=== PATIENT | male | born 1965 | race Caucasian/White ===

== ENCOUNTER 2020-02-09 09:24 | Inpatient (IN) | payer BC, OTHER ==
[~2020-02-09] VITALS: Ht 175.3 cm; Wt 100.4 kg
[~2020-02-09 09:24] MED LIST: FLUT9.9S NS; LORA10TA3 PO; MORPHINE SULFATE 4 MG/ML VIAL. IV PRN
[2020-02-09 09:55] LABS: BASO % 1 % (0-3); EOS % 0 % (0-3); HEMOGLOBIN 13.7 g/dL (13.0-17.5); LYMPH # 0.7 x10^3/uL (1.0-4.8); LYMPH % 9 % (24-48); MEAN CORPUSCULAR HEMOGLOBIN 31 pg (25-35); MEAN CORPUSCULAR HGB CONC 34 g/dL (31-37); MEAN CORPUSCULAR VOLUME 90 fL (79-100); MONO # 0.6 x10^3/uL (0.0-1.1); MONO % 8 % (0-9); NEUT # 6.7 x10^3/uL (1.8-7.7); NEUT % 83 % (31-73); PLATELET COUNT 265 x10^3/uL (140-400); RED BLOOD COUNT 4.43 x10^6/uL (4.30-5.70); RED CELL DISTRIBUTION WIDTH 12.9 % (11.5-14.5); WHITE BLOOD COUNT 8.1 x10^3/uL (4.0-11.0)
[2020-02-09 10:06] LABS: CALCIUM 8.7 mg/dL (8.5-10.1); CREATININE 1.1 mg/dL (0.7-1.3); GFR 69.2; POTASSIUM 3.9 mmol/L (3.5-5.1)
[2020-02-09 10:13] LABS: ALBUMIN/GLOBULIN RATIO 0.8 (1.0-1.7); C-REACTIVE PROTEIN 123.2 mg/L (0-3.3); TOTAL PROTEIN 6.7 g/dL (6.4-8.2)
--- NOTE | 2020-02-09 10:52 | RAD ---
EXAM: CHEST ONE VIEW. HISTORY: Cough, COVID-19. COMPARISON: None. FINDINGS: A frontal view of the chest is obtained. Bilateral patchy airspace infiltrates are consistent with atypical pneumonia. There is no pneumothorax or pleural effusion. The heart is not enlarged. IMPRESSION: 1. Mild multifocal infiltrates consistent with atypical pneumonia. Electronically signed by: Inocencio Padilla MD (02/09/2020 10:45 AM) [facility]
[2020-02-09] MEDS ORDERED: DEXAMETHASONE SOD PHOS 4 MG/ML VIAL IVP ONE (11:00)
[2020-02-09] MEDS ORDERED: ACETAMINOPHEN 500 MG TABLET PO ONE (11:00)
[2020-02-09] MEDS ORDERED: cefTRIAXone IV Push 1 GM VIAL. IVP ONE (11:00)
--- NOTE | 2020-02-09 12:04 | EKG ---
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
--- NOTE | 2020-02-09 12:13 | ED.ADGEN ---
Past Medical History Past Medical History: No Pertinent History Past Surgical History: Other Additional Past Surgical Histo: HERNIA REPAIR 93' Smoking Status: Never Smoker Additional Information: CHEWING TOBACCO Alcohol Use: Occasionally General Adult EDM: Chief Complaint: SHORTNESS OF BREATH HPI: HPI: Patient is a 54 year old [f__sex] who presents with [] Review of Systems: Review of Systems: Constitutional: Denies fever or chills. [] Eyes: Denies change in visual acuity. [] HENT: Denies nasal congestion or sore throat. [] Respiratory: Denies cough or shortness of breath. [] Cardiovascular: Denies chest pain or edema. [] GI: Denies abdominal pain, nausea, vomiting, bloody stools or diarrhea. [] : Denies dysuria. [] Musculoskeletal: Denies back pain or joint pain. [] Integument: Denies rash. [] Neurologic: Denies headache, focal weakness or sensory changes. [] Endocrine: Denies polyuria or polydipsia. [] Lymphatic: Denies swollen glands. [] Psychiatric: Denies depression or anxiety. [] Current Medications: Current Medications Medications (Trade) Dose Ordered Sig/Jonn Start Time Stop Time Status Last Admin Dose Admin Acetaminophen (Tylenol) 1,000 mg 1X ONCE 02/09/20 11:00 02/09/20 11:01 DC 02/09/20 11:15 1,000 MG Ceftriaxone Sodium (Rocephin) 1 gm 1X ONCE 02/09/20 11:00 02/09/20 11:01 DC 02/09/20 11:16 1 GM Dexamethasone Sodium Phosphate (Decadron) 10 mg 1X ONCE 02/09/20 11:00 02/09/20 11:01 DC 02/09/20 11:18 10 MG Allergies: Allergies: Allergies Coded Allergies Type Severity Reaction Last Updated Verified No Known Drug Allergies 06/02/14 No Physical Exam: PE: Constitutional: Well developed, well nourished, no acute distress, non-toxic appearance. [] HENT: Normocephalic, atraumatic, bilateral external ears normal, oropharynx moist, no oral exudates, nose normal. [] Eyes: PERRLA, EOMI, conjunctiva normal, no discharge. [] Neck: Normal range of motion, no tenderness, supple, no stridor. [] Cardiovascular:Heart rate regular rhythm, no murmur [] Lungs & Thorax: Bilateral breath sounds clear to auscultation [] Abdomen: Bowel sounds normal, soft, no tenderness, no masses, no pulsatile masses. [] Skin: Warm, dry, no erythema, no rash. [] Back: No tenderness, no CVA tenderness. [] Extremities: No tenderness, no cyanosis, no clubbing, ROM intact, no edema. [] Neurologic: Alert and oriented X 3, normal motor function, normal sensory function, no focal deficits noted. [] Psychologic: Affect normal, judgement normal, mood normal. [] Current Patient Data: Labs: Laboratory Tests Test 02/09/20 09:43 White Blood Count 8.1 x10^3/uL (4.0-11.0) Red Blood Count 4.43 x10^6/uL (4.30-5.70) Hemoglobin 13.7 g/dL (13.0-17.5) Hematocrit 40.0 % (39.0-53.0) Mean Corpuscular Volume 90 fL (79-100) Mean Corpuscular Hemoglobin 31 pg (25-35) Mean Corpuscular Hemoglobin Concent 34 g/dL (31-37) Red Cell Distribution Width 12.9 % (11.5-14.5) Platelet Count 265 x10^3/uL (140-400) Neutrophils (%) (Auto) 83 % (31-73) H Lymphocytes (%) (Auto) 9 % (24-48) L Monocytes (%) (Auto) 8 % (0-9) Eosinophils (%) (Auto) 0 % (0-3) Basophils (%) (Auto) 1 % (0-3) Neutrophils # (Auto) 6.7 x10^3/uL (1.8-7.7) Lymphocytes # (Auto) 0.7 x10^3/uL (1.0-4.8) L Monocytes # (Auto) 0.6 x10^3/uL (0.0-1.1) Eosinophils # (Auto) 0.0 x10^3/uL (0.0-0.7) Basophils # (Auto) 0.0 x10^3/uL (0.0-0.2) D-Dimer (Liz) 1.00 ug/mlFEU (0.00-0.50) H Sodium Level 140 mmol/L (136-145) Potassium Level 3.9 mmol/L (3.5-5.1) Chloride Level 104 mmol/L (98-107) Carbon Dioxide Level 24 mmol/L (21-32) Anion Gap 12 (6-14) Blood Urea Nitrogen 19 mg/dL (8-26) Creatinine 1.1 mg/dL (0.7-1.3) Estimated GFR (Cockcroft-Gault) 69.2 BUN/Creatinine Ratio 17 (6-20) Glucose Level 137 mg/dL (70-99) H Calcium Level 8.7 mg/dL (8.5-10.1) Total Bilirubin 1.0 mg/dL (0.2-1.0) Aspartate Amino Transferase (AST) 81 U/L (15-37) H Alanine Aminotransferase (ALT) 130 U/L (16-63) H Alkaline Phosphatase 66 U/L (46-116) Lactate Dehydrogenase 362 U/L (85-227) H Creatine Kinase 159 U/L (39-308) Troponin I Quantitative < 0.017 ng/mL (0.000-0.055) C-Reactive Protein, Quantitative 123.2 mg/L (0-3.3) H BT-Zbg-U-Type Natriuretic Peptide 37 pg/mL (0-124) Total Protein 6.7 g/dL (6.4-8.2) Albumin 3.0 g/dL (3.4-5.0) L Albumin/Globulin Ratio 0.8 (1.0-1.7) L Laboratory Tests 02/09/20 09:43 Laboratory Tests 02/09/20 09:43 Vital Signs: Vital Signs Date Time Temp Pulse Resp B/P (MAP) Pulse Ox O2 Delivery O2 Flow Rate FiO2 02/09/20 09:34 100.0 88 27 126/78 (94) 95 Nasal Cannula 4.0 100.0 EKG: EKG: [] Heart Score: Risk Factors: Risk Factors: DM, Current or recent (<one month) smoker, HTN, HLP, family history of CAD, obesity. Risk Scores: Score 0 - 3: 2.5% MACE over next 6 weeks - Discharge Home Score 4 - 6: 20.3% MACE over next 6 weeks - Admit for Clinical Observation Score 7 - 10: 72.7% MACE over next 6 weeks - Early Invasive Strategies Radiology/Procedures: Radiology/Procedures: [] Course & Med Decision Making: Course & Med Decision Making Pertinent Labs and Imaging studies reviewed. (See chart for details) [] Dragon Disclaimer: Dragon Disclaimer: This electronic medical record was generated, in whole or in part, using a voice recognition dictation system. Departure Departure Impression: Primary Impression: Coronavirus infection Additional Impression: Respiratory failure with hypoxia Disposition: 09 ADMITTED INPT THIS HOSP Condition: STABLE Referrals: AVE LOPEZ (PCP) Problem Qualifiers COLLEEN MASON MD Feb 09, 2020 12:13
[2020-02-09] MEDS: cefTRIAXone IV Push 1 GM VIAL. IVP SCH (12:30)
[2020-02-09] MEDS ORDERED: MORPHINE SULFATE 2 MG/ML VIAL. IV PRN (12:30)
[2020-02-09] MEDS ORDERED: DEXTROSE 50% 25 GM / 50ML DISP.SYRIN. IV PRN (12:30)
[2020-02-09] MEDS ORDERED: SENNOSIDES 8.6 MG TABLET PO PRN (12:30)
[2020-02-09] MEDS ORDERED: ONDANSETRON PF 4 MG/2 ML VIAL. IVP PRN (12:30)
[2020-02-09] MEDS ORDERED: DOCUSATE SODIUM 100 MG CAPSULE. PO PRN (12:30)
[2020-02-09] MEDS ORDERED: AZITHROMYCIN 500 MG in IV NORMAL SALINE 250ML 250 ML IV SCH (13:00)
[2020-02-09] MEDS: ASCORBIC ACID 1,000 MG TABLET PO SCH ×2 (13:33→21:31)
[2020-02-09] MEDS: THIAMINE INJ 100 MG in IV DEXTROSE 5% 50 ML IV SCH ×2 (14:47→21:30)
[2020-02-09] MEDS: IPRATROPIUM/ALBUTEROL 20/100mcg/INH INHALER. INH SCH ×3 (15:00→21:31)
--- NOTE | 2020-02-09 16:41 | PDOC ---
PULMONARY PROGRESS NOTES DATE: 02/09/20 TIME: 16:40 Vitals Vital Signs Date Time Temp Pulse Resp B/P (MAP) Pulse Ox O2 Delivery O2 Flow Rate FiO2 02/09/20 14:02 80 22 132/71 (91) 98 Nasal Cannula 4.0 02/09/20 09:34 100.0 100.0 Labs Laboratory Tests Test 02/09/20 09:43 White Blood Count 8.1 x10^3/uL (4.0-11.0) Red Blood Count 4.43 x10^6/uL (4.30-5.70) Hemoglobin 13.7 g/dL (13.0-17.5) Hematocrit 40.0 % (39.0-53.0) Mean Corpuscular Volume 90 fL (79-100) Mean Corpuscular Hemoglobin 31 pg (25-35) Mean Corpuscular Hemoglobin Concent 34 g/dL (31-37) Red Cell Distribution Width 12.9 % (11.5-14.5) Platelet Count 265 x10^3/uL (140-400) Neutrophils (%) (Auto) 83 % (31-73) Lymphocytes (%) (Auto) 9 % (24-48) Monocytes (%) (Auto) 8 % (0-9) Eosinophils (%) (Auto) 0 % (0-3) Basophils (%) (Auto) 1 % (0-3) Neutrophils # (Auto) 6.7 x10^3/uL (1.8-7.7) Lymphocytes # (Auto) 0.7 x10^3/uL (1.0-4.8) Monocytes # (Auto) 0.6 x10^3/uL (0.0-1.1) Eosinophils # (Auto) 0.0 x10^3/uL (0.0-0.7) Basophils # (Auto) 0.0 x10^3/uL (0.0-0.2) D-Dimer (Liz) 1.00 ug/mlFEU (0.00-0.50) Sodium Level 140 mmol/L (136-145) Potassium Level 3.9 mmol/L (3.5-5.1) Chloride Level 104 mmol/L (98-107) Carbon Dioxide Level 24 mmol/L (21-32) Anion Gap 12 (6-14) Blood Urea Nitrogen 19 mg/dL (8-26) Creatinine 1.1 mg/dL (0.7-1.3) Estimated GFR (Cockcroft-Gault) 69.2 BUN/Creatinine Ratio 17 (6-20) Glucose Level 137 mg/dL (70-99) Calcium Level 8.7 mg/dL (8.5-10.1) Total Bilirubin 1.0 mg/dL (0.2-1.0) Aspartate Amino Transf (AST/SGOT) 81 U/L (15-37) Alanine Aminotransferase (ALT/SGPT) 130 U/L (16-63) Alkaline Phosphatase 66 U/L (46-116) Lactate Dehydrogenase 362 U/L (85-227) Creatine Kinase 159 U/L (39-308) Troponin I Quantitative < 0.017 ng/mL (0.000-0.055) C-Reactive Protein, Quantitative 123.2 mg/L (0-3.3) VP-Gjl-Z-Type Natriuretic Peptide 37 pg/mL (0-124) Total Protein 6.7 g/dL (6.4-8.2) Albumin 3.0 g/dL (3.4-5.0) Albumin/Globulin Ratio 0.8 (1.0-1.7) Procalcitonin < 0.10 ng/mL (0.00-0.10) Laboratory Tests Test 02/09/20 09:43 White Blood Count 8.1 x10^3/uL (4.0-11.0) Red Blood Count 4.43 x10^6/uL (4.30-5.70) Hemoglobin 13.7 g/dL (13.0-17.5) Hematocrit 40.0 % (39.0-53.0) Mean Corpuscular Volume 90 fL (79-100) Mean Corpuscular Hemoglobin 31 pg (25-35) Mean Corpuscular Hemoglobin Concent 34 g/dL (31-37) Red Cell Distribution Width 12.9 % (11.5-14.5) Platelet Count 265 x10^3/uL (140-400) Neutrophils (%) (Auto) 83 % (31-73) Lymphocytes (%) (Auto) 9 % (24-48) Monocytes (%) (Auto) 8 % (0-9) Eosinophils (%) (Auto) 0 % (0-3) Basophils (%) (Auto) 1 % (0-3) Neutrophils # (Auto) 6.7 x10^3/uL (1.8-7.7) Lymphocytes # (Auto) 0.7 x10^3/uL (1.0-4.8) Monocytes # (Auto) 0.6 x10^3/uL (0.0-1.1) Eosinophils # (Auto) 0.0 x10^3/uL (0.0-0.7) Basophils # (Auto) 0.0 x10^3/uL (0.0-0.2) D-Dimer (Liz) 1.00 ug/mlFEU (0.00-0.50) Sodium Level 140 mmol/L (136-145) Potassium Level 3.9 mmol/L (3.5-5.1) Chloride Level 104 mmol/L (98-107) Carbon Dioxide Level 24 mmol/L (21-32) Anion Gap 12 (6-14) Blood Urea Nitrogen 19 mg/dL (8-26) Creatinine 1.1 mg/dL (0.7-1.3) Estimated GFR (Cockcroft-Gault) 69.2 BUN/Creatinine Ratio 17 (6-20) Glucose Level 137 mg/dL (70-99) Calcium Level 8.7 mg/dL (8.5-10.1) Total Bilirubin 1.0 mg/dL (0.2-1.0) Aspartate Amino Transf (AST/SGOT) 81 U/L (15-37) Alanine Aminotransferase (ALT/SGPT) 130 U/L (16-63) Alkaline Phosphatase 66 U/L (46-116) Lactate Dehydrogenase 362 U/L (85-227) Creatine Kinase 159 U/L (39-308) Troponin I Quantitative < 0.017 ng/mL (0.000-0.055) C-Reactive Protein, Quantitative 123.2 mg/L (0-3.3) UW-Obx-S-Type Natriuretic Peptide 37 pg/mL (0-124) Total Protein 6.7 g/dL (6.4-8.2) Albumin 3.0 g/dL (3.4-5.0) Albumin/Globulin Ratio 0.8 (1.0-1.7) Procalcitonin < 0.10 ng/mL (0.00-0.10) Medications Active Scripts Medications Dose Route/Sig Max Daily Dose Days Date Category Loratadine 10 Mg Tablet 1 Tab PO DAILY 06/02/14 Reported Flonase Allergy Relief (Fluticasone Propionate) 9.9 Ml [place].susp 9.9 Ml NS DAILY08 06/02/14 Reported Impression . Full note dictated Acute hypoxemic respiratory failure secondary to COVID-19 viral pneumonia possible bacterial pneumonia See orders Initiate remdesivir TANG FERREIRA MD Feb 09, 2020 16:41
--- NOTE | 2020-02-09 16:54 | CONS ---
DATE OF CONSULTATION: 02/09/2020 ATTENDING PHYSICIAN: Dr. Mendez. REASON FOR CONSULTATION: The patient is seen in pulmonary consultation at the request of Dr. Mendez for acute hypoxemic respiratory failure. HISTORY OF PRESENT ILLNESS: The patient is a 54-year-old that works at [employer]. As an employee, he gets checked intermittently. He tested positive on the . At that time, he was asymptomatic, but 2-3 days later, he became symptomatic. He went to see a physician [facility], was given Zithromax, prednisone and inhalers. He did improve. He felt like he was breathing easier. Over the last 24-48 hours, he has had increasing symptoms of shortness of air. He has noticed saturations that were dropping. He came in through the Emergency Room. I was asked to see him in consultation. He had a chest x-ray, which I personally reviewed, revealing bilateral alveolar type of infiltrates compatible with viral pneumonia. The patient has a prior history of recurrent bronchitis. Otherwise, he is pretty healthy. 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 PAST MEDICAL AND PAST SURGICAL HISTORY: Remarkable for previous hernia repair. SOCIAL HISTORY: He never smoked. 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 REVIEW OF SYSTEMS: CONSTITUTIONAL: Positive for fever. EYES: No change in visual acuity. HENT: No nasal congestion or sore throat. RESPIRATORY: As indicated above. CARDIOVASCULAR: No chest pain. No pressure. GASTROINTESTINAL: No nausea, vomiting, diarrhea. GENITOURINARY: No dysuria or frequency. MUSCULOSKELETAL: No localized muscle aches or joint pain. SKIN: No new skin rashes. NEUROLOGIC: No headaches, diplopia or blurred vision. PHYSICAL EXAMINATION: He was seen in the Emergency Department. He was seen during COVID-19 pandemic. On visual inspection, he was not severely short of air. He did not appear to be septic. SKIN: Showed no new skin lesions. NEUROLOGIC: He was awake, alert, following commands. VITAL SIGNS: He had a T-max of 100. LABORATORY DATA: Reviewed. White count was normal. He had a lymphopenia. Electrolytes were noted to be normal. BNP was not elevated. Procalcitonin was not elevated. C-reactive protein was elevated. Chest x-ray as indicated above. Coags revealed a D-dimer of 1.0. IMPRESSION: 1. Acute hypoxemic respiratory failure. 2. Suspect COVID-19 viral pneumonia. 3. Abnormal x-ray, possible gram-positive, gram-negative bacterial pneumonia. 4. Fever related to above. PLAN: 1. We will continue current support with IV antibiotics. 2. Dexamethasone. 3. Initiate remdesivir. 4. Bronchodilators. 5. DVT prophylaxis. I do appreciate the privilege in sharing in the patient's care. TANG FERREIRA MD DR: RUTHANN/isi JOB#: [id number] / [id number]
--- NOTE | 2020-02-09 17:44 | PDOC1 ---
History and Physical Date of Service: DOS: DATE: 02/09/20 TIME: 17:39 Chief Complaint: Chief Complain: SOB History of Present Illness: HPI: 54 yo M with no pertinent PMHx presents with SOB and fatigue last night in which he needed to call an ambulance. Patient works for [employer] and is frequently tested for COVID. He was postive for COVID on 02/04/20. [facility] and [facility], prednison, and inhalers which alleviated some symptoms but last night they returned. Denies CP, fever, N/V, diarrhea, or dysuria. In the ED he was found to be hypoxic requiring for him to be on 4 L O2 saturating at 94% Past Medical/Surgical History: PMH/PSH: PMHx: diverticulitis PSURGHx: Previous hernia repair 1992 Allergies: Allergies: Coded Allergies: No Known Drug Allergies (Unverified , 06/02/14) Family History: Family History: Reviewed and none reported Current Medications: Current Medications Current Medications Ceftriaxone Sodium (Rocephin) 1 gm 1X ONCE IVP Last administered on 02/09/20at 11:16; Start 02/09/20 at 11:00; Stop 02/09/20 at 11:01; Status DC Dexamethasone Sodium Phosphate (Decadron) 10 mg 1X ONCE IVP Last administered on 02/09/20at 11:18; Start 02/09/20 at 11:00; Stop 02/09/20 at 11:01; Status DC Acetaminophen (Tylenol) 1,000 mg 1X ONCE PO Last administered on 02/09/20at 11:15; Start 02/09/20 at 11:00; Stop 02/09/20 at 11:01; Status DC Ceftriaxone Sodium (Rocephin) 1 gm Q24H IVP ; Start 02/09/20 at 12:30 Azithromycin 500 mg/Sodium Chloride 250 ml @ 250 mls/hr Q24H IV Last administered on 02/09/20at 13:33; Start 02/09/20 at 13:00 Ascorbic Acid (Vitamin C) 3,000 mg TID PO Last administered on 02/09/20at 13:33; Start 02/09/20 at 14:00 Thiamine HCl 100 mg/Dextrose 51 ml @ 102 mls/hr Q8HRS IV Last administered on 02/09/20at 14:47; Start 02/09/20 at 14:00 Dexamethasone Sodium Phosphate (Decadron) 4 mg Q12HR IVP ; Start 02/09/20 at 21:00 Sennosides (Senna) 17.2 mg PRN BID PRN PO CONSTIPATION; Start 02/09/20 at 12:30 Docusate Sodium (Colace) 100 mg PRN DAILY PRN PO HARD STOOLS; Start 02/09/20 at 12:30 Ondansetron HCl (Zofran) 4 mg PRN Q6HRS PRN IVP NAUSEA/VOMITING; Start 02/09/20 at 12:30 Dextrose (Dextrose 50%-Water Syringe) 12.5 gm PRN Q15MIN PRN IV SEE COMMENTS; Start 02/09/20 at 12:30 Enoxaparin Sodium (Lovenox 40mg Syringe) 40 mg BID SQ ; Start 02/09/20 at 21:00 Morphine Sulfate (Morphine Sulfate) 1 mg PRN Q1HR PRN IV MILD PAIN 1-3; Start 02/09/20 at 12:30 Morphine Sulfate (Morphine Sulfate) 2 mg PRN Q2HR PRN IV SEVERE PAIN 7-10; Start 02/09/20 at 04:00; Stop 02/10/20 at 03:59 Albuterol/ Ipratropium (Combivent Respimat 20-100 Mcg) 1 puff RTQID INH Last administered on 02/09/20at 16:45; Start 02/09/20 at 13:00 Remdesivir 200 mg/ Sodium Chloride 210 ml @ 210 mls/hr 1X ONCE IV ; Start 02/09/20 at 18:00; Stop 02/09/20 at 18:59 Remdesivir 100 mg/ Sodium Chloride 230 ml @ 460 mls/hr Q24H IV ; Start 02/10/20 at 18:00; Stop 02/13/20 at 18:29 Active Scripts Active Reported Loratadine 10 Mg Tablet 1 Tab PO DAILY Flonase Allergy Relief (Fluticasone Propionate) 9.9 Ml [place].susp 9.9 Ml NS DAILY08 ROS: Review of Systems Review of System REVIEW OF SYSTEMS: GENERAL: Denies weakness SKIN: No bruising, hair changes or rashes. EYES: No blurred, double or loss of vision. NOSE AND THROAT: No history of nosebleeds, hoarseness or sore throat. HEART: No history of palpitations, chest pain or shortness of breath on exertion. LUNGS: Denies cough, hemoptysis, wheezing or shortness of breath. GASTROINTESTINAL: Denies changes in appetite, nausea, vomiting, diarrhea or constipation. GENITOURINARY: No history of frequency, urgency, hesitancy or nocturia. NEUROLOGIC: Denies history of numbness, tingling, or tremor. PSYCHIATRIC: No history of panic, anxiety or depression. ENDOCRINE: No history of heat or cold intolerance, polyuria or polydipsia. EXTREMITIES: Denies joint pain, pain on walking or stiffness. Physical Exam: Vital Signs: Vital Signs Date Time Temp Pulse Resp B/P (MAP) Pulse Ox O2 Delivery O2 Flow Rate FiO2 02/09/20 14:02 80 22 132/71 (91) 98 Nasal Cannula 4.0 02/09/20 09:34 100.0 100.0 Physcial Exam: GEN: No apparent distress. Alert and oriented HEENT: Normal cephalic, atraumatic, external auditory canals are patent EYES: Extraocular muscles are intact, pupil are equally round and reactive to light and accommodation MUSCULOSKELETAL: Well developed , well nourished, good range of motion ENDOCRINE: No thyromegaly was palpated LYMPHATICS: No cervical chain or axillary nodes were noted HEMATOPOIETIC: No bruising NECK: Supple, no JVD, no thyromegaly was noted LUNGS: Clear to auscultation in all lung paulino without rhonchi or wheezing HEART: RRR, S!, S2 present. Peripheral pulses intact, no obvious murmurs noted ABDOMEN: Soft, nontender. Positive bowel sounds, no organomegaly, normal maggi l sounds EXTREMITIES: Without clubbing, cyanosis, or edema. Pedal pulses intact. Negative Homans sign NEUROLOGIC: Normal speech and tone. A&O x 3, moves all extremities, no obvious focal deficits PSYCHIATRIC: Normal affect, normal mood. Stable SKIN: No ulcerations or rashes, good skin turgor, no jaundice VASCULAR: Good capillary refill, neurovascular bundle appears to be intact Labs: Labs: Laboratory Tests Test 02/09/20 09:43 White Blood Count 8.1 x10^3/uL (4.0-11.0) Red Blood Count 4.43 x10^6/uL (4.30-5.70) Hemoglobin 13.7 g/dL (13.0-17.5) Hematocrit 40.0 % (39.0-53.0) Mean Corpuscular Volume 90 fL (79-100) Mean Corpuscular Hemoglobin 31 pg (25-35) Mean Corpuscular Hemoglobin Concent 34 g/dL (31-37) Red Cell Distribution Width 12.9 % (11.5-14.5) Platelet Count 265 x10^3/uL (140-400) Neutrophils (%) (Auto) 83 % (31-73) Lymphocytes (%) (Auto) 9 % (24-48) Monocytes (%) (Auto) 8 % (0-9) Eosinophils (%) (Auto) 0 % (0-3) Basophils (%) (Auto) 1 % (0-3) Neutrophils # (Auto) 6.7 x10^3/uL (1.8-7.7) Lymphocytes # (Auto) 0.7 x10^3/uL (1.0-4.8) Monocytes # (Auto) 0.6 x10^3/uL (0.0-1.1) Eosinophils # (Auto) 0.0 x10^3/uL (0.0-0.7) Basophils # (Auto) 0.0 x10^3/uL (0.0-0.2) D-Dimer (Liz) 1.00 ug/mlFEU (0.00-0.50) Sodium Level 140 mmol/L (136-145) Potassium Level 3.9 mmol/L (3.5-5.1) Chloride Level 104 mmol/L (98-107) Carbon Dioxide Level 24 mmol/L (21-32) Anion Gap 12 (6-14) Blood Urea Nitrogen 19 mg/dL (8-26) Creatinine 1.1 mg/dL (0.7-1.3) Estimated GFR (Cockcroft-Gault) 69.2 BUN/Creatinine Ratio 17 (6-20) Glucose Level 137 mg/dL (70-99) Calcium Level 8.7 mg/dL (8.5-10.1) Total Bilirubin 1.0 mg/dL (0.2-1.0) Aspartate Amino Transf (AST/SGOT) 81 U/L (15-37) Alanine Aminotransferase (ALT/SGPT) 130 U/L (16-63) Alkaline Phosphatase 66 U/L (46-116) Lactate Dehydrogenase 362 U/L (85-227) Creatine Kinase 159 U/L (39-308) Troponin I Quantitative < 0.017 ng/mL (0.000-0.055) C-Reactive Protein, Quantitative 123.2 mg/L (0-3.3) DJ-Gmu-U-Type Natriuretic Peptide 37 pg/mL (0-124) Total Protein 6.7 g/dL (6.4-8.2) Albumin 3.0 g/dL (3.4-5.0) Albumin/Globulin Ratio 0.8 (1.0-1.7) Procalcitonin < 0.10 ng/mL (0.00-0.10) Laboratory Tests Test 02/09/20 09:43 White Blood Count 8.1 x10^3/uL (4.0-11.0) Red Blood Count 4.43 x10^6/uL (4.30-5.70) Hemoglobin 13.7 g/dL (13.0-17.5) Hematocrit 40.0 % (39.0-53.0) Mean Corpuscular Volume 90 fL (79-100) Mean Corpuscular Hemoglobin 31 pg (25-35) Mean Corpuscular Hemoglobin Concent 34 g/dL (31-37) Red Cell Distribution Width 12.9 % (11.5-14.5) Platelet Count 265 x10^3/uL (140-400) Neutrophils (%) (Auto) 83 % (31-73) Lymphocytes (%) (Auto) 9 % (24-48) Monocytes (%) (Auto) 8 % (0-9) Eosinophils (%) (Auto) 0 % (0-3) Basophils (%) (Auto) 1 % (0-3) Neutrophils # (Auto) 6.7 x10^3/uL (1.8-7.7) Lymphocytes # (Auto) 0.7 x10^3/uL (1.0-4.8) Monocytes # (Auto) 0.6 x10^3/uL (0.0-1.1) Eosinophils # (Auto) 0.0 x10^3/uL (0.0-0.7) Basophils # (Auto) 0.0 x10^3/uL (0.0-0.2) D-Dimer (Liz) 1.00 ug/mlFEU (0.00-0.50) Sodium Level 140 mmol/L (136-145) Potassium Level 3.9 mmol/L (3.5-5.1) Chloride Level 104 mmol/L (98-107) Carbon Dioxide Level 24 mmol/L (21-32) Anion Gap 12 (6-14) Blood Urea Nitrogen 19 mg/dL (8-26) Creatinine 1.1 mg/dL (0.7-1.3) Estimated GFR (Cockcroft-Gault) 69.2 BUN/Creatinine Ratio 17 (6-20) Glucose Level 137 mg/dL (70-99) Calcium Level 8.7 mg/dL (8.5-10.1) Total Bilirubin 1.0 mg/dL (0.2-1.0) Aspartate Amino Transf (AST/SGOT) 81 U/L (15-37) Alanine Aminotransferase (ALT/SGPT) 130 U/L (16-63) Alkaline Phosphatase 66 U/L (46-116) Lactate Dehydrogenase 362 U/L (85-227) Creatine Kinase 159 U/L (39-308) Troponin I Quantitative < 0.017 ng/mL (0.000-0.055) C-Reactive Protein, Quantitative 123.2 mg/L (0-3.3) LC-Heb-Q-Type Natriuretic Peptide 37 pg/mL (0-124) Total Protein 6.7 g/dL (6.4-8.2) Albumin 3.0 g/dL (3.4-5.0) Albumin/Globulin Ratio 0.8 (1.0-1.7) Procalcitonin < 0.10 ng/mL (0.00-0.10) Images: Images CXR IMPRESSION: 1. Mild multifocal infiltrates consistent with atypical pneumonia. Assessment/Plan Assessment/Plan Acute hypoxic respiratory distress due to COVID infection Lymphopenia Elevated D Dimer Admit to medicine for further management ID consult Pulmonology consult Initiated Remdesivir IV Dexamethasone O2 supplementation to titrate > 92% continue IV empiric Abx Lovenox fot DVT prophylaxis Regular Diet MPOA: Justifications for Admission Other Justification hypoxic respiratory distress due to COVID infection JOSELIN LIU MD Feb 09, 2020 17:44
[2020-02-09] MEDS ORDERED: REMDESIVIR LOAD in IV NORMAL SALINE 250ML TV IV ONE (18:00)
[2020-02-09 19:40] VITALS: BP 142/82
--- NOTE | 2020-02-09 19:40 | NUR ---
The patient, JOHNIE BLACKWELL, 54 y/o, M admitted by JOSELIN LIU MD, was given written information regarding hospital policies, unit procedures and contact persons. patient was transferred to room via ED bed assisted by ED staff member. Valuables were checked and noted. Patient is currently laying in bed watching TV, call light is within reach of patient. Patient denies needs at this time. This RN will continue to monitor the patient a this time.
[2020-02-09] MEDS: ENOXAPARIN 40 MG/0.4 ML SYRINGE. SQ SCH (21:31)
[2020-02-09] MEDS: DEXAMETHASONE SOD PHOS 4 MG/ML VIAL IVP SCH (21:31)
[2020-02-09 23:37] VITALS: BP 133/81
[2020-02-10 03:00] VITALS: BP 114/68
[2020-02-10 04:45] LABS: BASO % 1 % (0-3); EOS % 0 % (0-3); HEMATOCRIT 37.1 % (39.0-53.0); LYMPH # 0.5 x10^3/uL (1.0-4.8); LYMPH % 9 % (24-48); MEAN CORPUSCULAR HEMOGLOBIN 31 pg (25-35); MEAN CORPUSCULAR HGB CONC 35 g/dL (31-37); MEAN CORPUSCULAR VOLUME 89 fL (79-100); MONO # 0.4 x10^3/uL (0.0-1.1); MONO % 7 % (0-9); NEUT # 4.2 x10^3/uL (1.8-7.7); NEUT % 83 % (31-73); PLATELET COUNT 263 x10^3/uL (140-400); RED BLOOD COUNT 4.19 x10^6/uL (4.30-5.70); RED CELL DISTRIBUTION WIDTH 12.5 % (11.5-14.5)
[2020-02-10 05:04] LABS: CALCIUM 8.7 mg/dL (8.5-10.1); GFR 77.3; MAGNESIUM 2.7 mg/dL (1.8-2.4); PHOSPHORUS 4.5 mg/dL (2.6-4.7); POTASSIUM 4.2 mmol/L (3.5-5.1)
[2020-02-10] MEDS: THIAMINE INJ 100 MG in IV DEXTROSE 5% 50 ML IV SCH ×4 (06:32→22:37)
[2020-02-10 07:00] VITALS: BP 125/78
--- NOTE | 2020-02-10 08:43 | PDOC ---
PULMONARY PROGRESS NOTES DATE: 02/10/20 TIME: 08:43 Subjective Patient feels better not more short of air no chest pain no pressure no increasing cough Vitals Vital Signs Date Time Temp Pulse Resp B/P (MAP) Pulse Ox O2 Delivery O2 Flow Rate FiO2 02/10/20 03:00 97.5 64 16 114/68 (83) 98 Nasal Cannula 4.0 97.5 Comments Patient seen doing the COVID-19 pandemic on visual inspection no respiratory distress no increasing edema no skin rashes awake alert following, ROS: No Nausea, No Chest Pain, No Abdominal Pain, No Increase Cough Labs Laboratory Tests Test 02/09/20 09:43 02/10/20 04:00 White Blood Count 8.1 x10^3/uL (4.0-11.0) 5.0 x10^3/uL (4.0-11.0) Red Blood Count 4.43 x10^6/uL (4.30-5.70) 4.19 x10^6/uL (4.30-5.70) Hemoglobin 13.7 g/dL (13.0-17.5) 13.0 g/dL (13.0-17.5) Hematocrit 40.0 % (39.0-53.0) 37.1 % (39.0-53.0) Mean Corpuscular Volume 90 fL (79-100) 89 fL (79-100) Mean Corpuscular Hemoglobin 31 pg (25-35) 31 pg (25-35) Mean Corpuscular Hemoglobin Concent 34 g/dL (31-37) 35 g/dL (31-37) Red Cell Distribution Width 12.9 % (11.5-14.5) 12.5 % (11.5-14.5) Platelet Count 265 x10^3/uL (140-400) 263 x10^3/uL (140-400) Neutrophils (%) (Auto) 83 % (31-73) 83 % (31-73) Lymphocytes (%) (Auto) 9 % (24-48) 9 % (24-48) Monocytes (%) (Auto) 8 % (0-9) 7 % (0-9) Eosinophils (%) (Auto) 0 % (0-3) 0 % (0-3) Basophils (%) (Auto) 1 % (0-3) 1 % (0-3) Neutrophils # (Auto) 6.7 x10^3/uL (1.8-7.7) 4.2 x10^3/uL (1.8-7.7) Lymphocytes # (Auto) 0.7 x10^3/uL (1.0-4.8) 0.5 x10^3/uL (1.0-4.8) Monocytes # (Auto) 0.6 x10^3/uL (0.0-1.1) 0.4 x10^3/uL (0.0-1.1) Eosinophils # (Auto) 0.0 x10^3/uL (0.0-0.7) 0.0 x10^3/uL (0.0-0.7) Basophils # (Auto) 0.0 x10^3/uL (0.0-0.2) 0.0 x10^3/uL (0.0-0.2) D-Dimer (Liz) 1.00 ug/mlFEU (0.00-0.50) Sodium Level 140 mmol/L (136-145) 139 mmol/L (136-145) Potassium Level 3.9 mmol/L (3.5-5.1) 4.2 mmol/L (3.5-5.1) Chloride Level 104 mmol/L (98-107) 103 mmol/L (98-107) Carbon Dioxide Level 24 mmol/L (21-32) 23 mmol/L (21-32) Anion Gap 12 (6-14) 13 (6-14) Blood Urea Nitrogen 19 mg/dL (8-26) 20 mg/dL (8-26) Creatinine 1.1 mg/dL (0.7-1.3) 1.0 mg/dL (0.7-1.3) Estimated GFR (Cockcroft-Gault) 69.2 77.3 BUN/Creatinine Ratio 17 (6-20) Glucose Level 137 mg/dL (70-99) 138 mg/dL (70-99) Calcium Level 8.7 mg/dL (8.5-10.1) 8.7 mg/dL (8.5-10.1) Total Bilirubin 1.0 mg/dL (0.2-1.0) Aspartate Amino Transf (AST/SGOT) 81 U/L (15-37) Alanine Aminotransferase (ALT/SGPT) 130 U/L (16-63) Alkaline Phosphatase 66 U/L (46-116) Lactate Dehydrogenase 362 U/L (85-227) Creatine Kinase 159 U/L (39-308) Troponin I Quantitative < 0.017 ng/mL (0.000-0.055) C-Reactive Protein, Quantitative 123.2 mg/L (0-3.3) ZQ-Xvc-A-Type Natriuretic Peptide 37 pg/mL (0-124) Total Protein 6.7 g/dL (6.4-8.2) Albumin 3.0 g/dL (3.4-5.0) Albumin/Globulin Ratio 0.8 (1.0-1.7) Procalcitonin < 0.10 ng/mL (0.00-0.10) Phosphorus Level 4.5 mg/dL (2.6-4.7) Magnesium Level 2.7 mg/dL (1.8-2.4) Laboratory Tests Test 02/09/20 09:43 02/10/20 04:00 White Blood Count 8.1 x10^3/uL (4.0-11.0) 5.0 x10^3/uL (4.0-11.0) Red Blood Count 4.43 x10^6/uL (4.30-5.70) 4.19 x10^6/uL (4.30-5.70) Hemoglobin 13.7 g/dL (13.0-17.5) 13.0 g/dL (13.0-17.5) Hematocrit 40.0 % (39.0-53.0) 37.1 % (39.0-53.0) Mean Corpuscular Volume 90 fL (79-100) 89 fL (79-100) Mean Corpuscular Hemoglobin 31 pg (25-35) 31 pg (25-35) Mean Corpuscular Hemoglobin Concent 34 g/dL (31-37) 35 g/dL (31-37) Red Cell Distribution Width 12.9 % (11.5-14.5) 12.5 % (11.5-14.5) Platelet Count 265 x10^3/uL (140-400) 263 x10^3/uL (140-400) Neutrophils (%) (Auto) 83 % (31-73) 83 % (31-73) Lymphocytes (%) (Auto) 9 % (24-48) 9 % (24-48) Monocytes (%) (Auto) 8 % (0-9) 7 % (0-9) Eosinophils (%) (Auto) 0 % (0-3) 0 % (0-3) Basophils (%) (Auto) 1 % (0-3) 1 % (0-3) Neutrophils # (Auto) 6.7 x10^3/uL (1.8-7.7) 4.2 x10^3/uL (1.8-7.7) Lymphocytes # (Auto) 0.7 x10^3/uL (1.0-4.8) 0.5 x10^3/uL (1.0-4.8) Monocytes # (Auto) 0.6 x10^3/uL (0.0-1.1) 0.4 x10^3/uL (0.0-1.1) Eosinophils # (Auto) 0.0 x10^3/uL (0.0-0.7) 0.0 x10^3/uL (0.0-0.7) Basophils # (Auto) 0.0 x10^3/uL (0.0-0.2) 0.0 x10^3/uL (0.0-0.2) D-Dimer (Liz) 1.00 ug/mlFEU (0.00-0.50) Sodium Level 140 mmol/L (136-145) 139 mmol/L (136-145) Potassium Level 3.9 mmol/L (3.5-5.1) 4.2 mmol/L (3.5-5.1) Chloride Level 104 mmol/L (98-107) 103 mmol/L (98-107) Carbon Dioxide Level 24 mmol/L (21-32) 23 mmol/L (21-32) Anion Gap 12 (6-14) 13 (6-14) Blood Urea Nitrogen 19 mg/dL (8-26) 20 mg/dL (8-26) Creatinine 1.1 mg/dL (0.7-1.3) 1.0 mg/dL (0.7-1.3) Estimated GFR (Cockcroft-Gault) 69.2 77.3 BUN/Creatinine Ratio 17 (6-20) Glucose Level 137 mg/dL (70-99) 138 mg/dL (70-99) Calcium Level 8.7 mg/dL (8.5-10.1) 8.7 mg/dL (8.5-10.1) Total Bilirubin 1.0 mg/dL (0.2-1.0) Aspartate Amino Transf (AST/SGOT) 81 U/L (15-37) Alanine Aminotransferase (ALT/SGPT) 130 U/L (16-63) Alkaline Phosphatase 66 U/L (46-116) Lactate Dehydrogenase 362 U/L (85-227) Creatine Kinase 159 U/L (39-308) Troponin I Quantitative < 0.017 ng/mL (0.000-0.055) C-Reactive Protein, Quantitative 123.2 mg/L (0-3.3) UL-Eko-N-Type Natriuretic Peptide 37 pg/mL (0-124) Total Protein 6.7 g/dL (6.4-8.2) Albumin 3.0 g/dL (3.4-5.0) Albumin/Globulin Ratio 0.8 (1.0-1.7) Procalcitonin < 0.10 ng/mL (0.00-0.10) Phosphorus Level 4.5 mg/dL (2.6-4.7) Magnesium Level 2.7 mg/dL (1.8-2.4) Medications Active Scripts Medications Dose Route/Sig Max Daily Dose Days Date Category Loratadine 10 Mg Tablet 1 Tab PO DAILY 06/02/14 Reported Flonase Allergy Relief (Fluticasone Propionate) 9.9 Ml [place].susp 9.9 Ml NS DAILY08 06/02/14 Reported Impression . IMPRESSION: 1. Acute hypoxemic respiratory failure. 2. Suspect COVID-19 viral pneumonia. 3. Abnormal x-ray, possible gram-positive, gram-negative bacterial pneumonia. 4. Fever related to above. Plan . Continue current support, IV antibiotics, Dexamethasone Remdesivir Bronchodilators DVT prophylaxis TANG FERREIRA MD Feb 10, 2020 08:43
[2020-02-10] MEDS: IPRATROPIUM/ALBUTEROL 20/100mcg/INH INHALER. INH SCH ×4 (09:34→22:37)
[2020-02-10] MEDS: ENOXAPARIN 40 MG/0.4 ML SYRINGE. SQ SCH ×2 (09:35→22:21)
[2020-02-10] MEDS: DEXAMETHASONE SOD PHOS 4 MG/ML VIAL IVP SCH ×2 (09:35→22:19)
[2020-02-10] MEDS: ASCORBIC ACID 1,000 MG TABLET PO SCH ×3 (09:35→22:21)
--- NOTE | 2020-02-10 10:22 | PDOC ---
Infectious Disease Note Vital Signs: Vital Signs Vital Signs Date Time Temp Pulse Resp B/P (MAP) Pulse Ox O2 Delivery O2 Flow Rate FiO2 02/10/20 07:00 96.8 71 20 125/78 (94) 98 Nasal Cannula 4.0 96.8 Medications: Inpatient Meds: Current Medications Medications (Trade) Dose Ordered Sig/Jonn Start Time Stop Time Status Last Admin Dose Admin Acetaminophen (Tylenol) 1,000 mg 1X ONCE 02/09/20 11:00 02/09/20 11:01 DC 02/09/20 11:15 1,000 MG Albuterol/ Ipratropium (Combivent Respimat 20-100 Mcg) 1 puff RTQID 02/09/20 13:00 02/10/20 09:34 1 PUFF Ascorbic Acid (Vitamin C) 3,000 mg TID 02/09/20 14:00 02/10/20 09:35 3,000 MG Azithromycin 500 mg/Sodium Chloride 250 ml @ 250 mls/hr Q24H 02/09/20 13:00 02/09/20 13:33 250 MLS/HR Ceftriaxone Sodium (Rocephin) 1 gm Q24H 02/09/20 12:30 Dexamethasone Sodium Phosphate (Decadron) 4 mg Q12HR 02/09/20 21:00 02/10/20 09:35 4 MG Dextrose (Dextrose 50%-Water Syringe) 12.5 gm PRN Q15MIN PRN 02/09/20 12:30 Docusate Sodium (Colace) 100 mg PRN DAILY PRN 02/09/20 12:30 Enoxaparin Sodium (Lovenox 40mg Syringe) 40 mg BID 02/09/20 21:00 02/10/20 09:35 40 MG Morphine Sulfate (Morphine Sulfate) 2 mg PRN Q2HR PRN 02/09/20 04:00 02/10/20 04:00 DC Ondansetron HCl (Zofran) 4 mg PRN Q6HRS PRN 02/09/20 12:30 Remdesivir 100 mg/ Sodium Chloride 230 ml @ 460 mls/hr Q24H 02/10/20 18:00 02/13/20 18:29 Remdesivir 200 mg/ Sodium Chloride 210 ml @ 210 mls/hr 1X ONCE 02/09/20 18:00 12/3/20 18:59 DC 02/09/20 18:48 210 MLS/HR Sennosides (Senna) 17.2 mg PRN BID PRN 02/09/20 12:30 Thiamine HCl 100 mg/Dextrose 51 ml @ 102 mls/hr Q8HRS 02/09/20 14:00 02/10/20 06:32 102 MLS/HR Labs: Lab Laboratory Tests Test 02/10/20 04:00 White Blood Count 5.0 x10^3/uL (4.0-11.0) Red Blood Count 4.19 x10^6/uL (4.30-5.70) Hemoglobin 13.0 g/dL (13.0-17.5) Hematocrit 37.1 % (39.0-53.0) Mean Corpuscular Volume 89 fL (79-100) Mean Corpuscular Hemoglobin 31 pg (25-35) Mean Corpuscular Hemoglobin Concent 35 g/dL (31-37) Red Cell Distribution Width 12.5 % (11.5-14.5) Platelet Count 263 x10^3/uL (140-400) Neutrophils (%) (Auto) 83 % (31-73) Lymphocytes (%) (Auto) 9 % (24-48) Monocytes (%) (Auto) 7 % (0-9) Eosinophils (%) (Auto) 0 % (0-3) Basophils (%) (Auto) 1 % (0-3) Neutrophils # (Auto) 4.2 x10^3/uL (1.8-7.7) Lymphocytes # (Auto) 0.5 x10^3/uL (1.0-4.8) Monocytes # (Auto) 0.4 x10^3/uL (0.0-1.1) Eosinophils # (Auto) 0.0 x10^3/uL (0.0-0.7) Basophils # (Auto) 0.0 x10^3/uL (0.0-0.2) Sodium Level 139 mmol/L (136-145) Potassium Level 4.2 mmol/L (3.5-5.1) Chloride Level 103 mmol/L (98-107) Carbon Dioxide Level 23 mmol/L (21-32) Anion Gap 13 (6-14) Blood Urea Nitrogen 20 mg/dL (8-26) Creatinine 1.0 mg/dL (0.7-1.3) Estimated GFR (Cockcroft-Gault) 77.3 Glucose Level 138 mg/dL (70-99) Calcium Level 8.7 mg/dL (8.5-10.1) Phosphorus Level 4.5 mg/dL (2.6-4.7) Magnesium Level 2.7 mg/dL (1.8-2.4) Objective: Assessment: Patient seen and examined ID consult dictated Impression COVID-19 infection Pneumonia likely viral Lymphopenia Acute hypoxic respiratory failure Abnormal LFT History of diverticulitis Plan: Plan of Care Continue supportive care Continue remdesivir Continue IV ceftriaxone DC azithromycin as patient has completed treatment as an outpatient Steroids per pulmonary Follow-up labs and cultures Thank you [id number] SHADE DONALD MD Feb 10, 2020 10:22
--- NOTE | 2020-02-10 10:45 | CONS ---
DATE OF CONSULTATION: 02/10/2020 REFERRING PHYSICIAN: Dr. Mckeon. REASON FOR CONSULTATION: COVID-19 infection. HISTORY OF PRESENT ILLNESS: A 54-year-old male who presented to the ER on 02/09/2020 with complaints of shortness of breath, worsening cough, fatigue, which started a day prior to admission. The patient [employer] and has been tested for COVID about 20 times. He was tested positive for COVID on 02/04/2020. He went to urgent care and received a Z-Jesús, prednisone and inhalers. It helped him a little bit, but his symptoms returned. He was found to be hypoxic, requiring 4 liters of O2 by nasal cannula. His appetite was low. He was feeling weak. He had associated headache, no sore throat, no loss of taste or smell sensation. No nausea, vomiting, diarrhea, abdominal pain, chest pain. PAST MEDICAL HISTORY: The patient was started on ceftriaxone, azithromycin, dexamethasone was also started on remdesivir on 02/09/2020, this morning, he feels a little better. He still has cough and shortness of breath requiring 4 liters of O2 by nasal cannula. PAST MEDICAL HISTORY: Diverticulitis. PAST SURGICAL HISTORY: Previous hernia repair. CURRENT MEDICATIONS: Ceftriaxone, dexamethasone, acetaminophen, azithromycin, ascorbic acid, thiamine, sennoside, Zofran, enoxaparin, morphine, albuterol, Respimat and remdesivir. ALLERGIES: No known drug allergies. SOCIAL HISTORY: Denies smoking, ETOH intake. No drugs. , lives with , 2 college children. REVIEW OF SYSTEMS: Negative except for above in HPI. PHYSICAL EXAMINATION: VITAL SIGNS: Temperature 96.8, pulse 71, respiratory rate 20, blood pressure 125/78 and oxygen saturation 98% on 4 liters by nasal cannula. GENERAL: Alert, oriented x 3 male lying in bed comfortably, in no acute distress, talking to his on phone. HEENT: Normocephalic, atraumatic, anicteric. NECK: Supple, no JVD. LUNGS: Decreased breath sound at the bases. No wheezing. HEART: S1, S2. No gallops or murmurs. ABDOMEN: Soft, nontender, nondistended, no rebound or guarding. EXTREMITIES: No edema, no cyanosis. DERMATOLOGIC: Warm, dry. No generalized rash. NEUROLOGIC: Alert and oriented x 3, grossly nonfocal. PSYCHIATRIC: Cooperative, appropriate mood and affect. LABORATORY DATA: WBC 5.0, hemoglobin 13, hematocrit 37.1, platelets 263, lymphocyte 9. Sodium 139, potassium 4.2, chloride 103, bicarbonate 23, BUN 20, creatinine 1.0, glucose 138. C-reactive protein 123.2, LDH 362. CPK 159. Troponin normal. Procalcitonin normal. D-dimer 1.0. IMAGING: Chest x-ray: Mild multifocal infiltrates consistent with atypical pneumonia. IMPRESSION: 1. COVID-19 infection. 2. Lymphopenia. 3. Acute hypoxic respiratory failure. 4. History of diverticulitis. RECOMMENDATIONS: 1. Continue supportive treatment. 2. Continue dexamethasone. 3. Continue remdesivir 02/09/2020. 4. Continue ceftriaxone. Discontinue azithromycin as the patient has completed treatment before admissioin. 5. Follow up labs and cultures. Thank you, Dr. Mckeon, for consulting Infectious Disease to participate in this patient's care. If you have any questions, do not hesitate to contact me. Discussed with the patient's on phone per patient's request. SHADE DONALD MD DR: JASON/isi JOB#: [id number] / [id number] SJ
[2020-02-10 10:59] VITALS: BP 135/79
--- NOTE | 2020-02-10 11:37 | PDOC ---
[employer] PROGRESS NOTE Date of Service DOS: DATE: 02/10/20 TIME: 11:35 Chief Complaint Chief Complaint Acute hypoxic respiratory distress due to COVID infection Lymphopenia Elevated D Dimer History of Present Illness History of Present Illness 02/10/2020 Patient seen and examined on the COVID-19 unit Is Covid test is positive Discussed with RN Chart reviewed He is quite ill Vitals/I&O Vitals/I&O: Vital Signs Date Time Temp Pulse Resp B/P (MAP) Pulse Ox O2 Delivery O2 Flow Rate FiO2 02/10/20 10:59 96.9 71 20 135/79 (97) 98 Nasal Cannula 4.0 96.9 I & O 02/09/20 02/09/20 02/10/20 15:00 23:00 07:00 Intake Total 50 ml 60 ml Balance 50 ml 60 ml Physical Exam General: Alert, mild distress Heart: Normal S1, Normal S2, Other (Tachycardic) Lungs: Crackles Abdomen: Normal bowel sounds, No hepatosplenomegaly Extremities: No cyanosis, No edema Skin: No rashes, No breakdown Labs Labs: Laboratory Tests Test 02/10/20 04:00 White Blood Count 5.0 x10^3/uL (4.0-11.0) Red Blood Count 4.19 x10^6/uL (4.30-5.70) Hemoglobin 13.0 g/dL (13.0-17.5) Hematocrit 37.1 % (39.0-53.0) Mean Corpuscular Volume 89 fL (79-100) Mean Corpuscular Hemoglobin 31 pg (25-35) Mean Corpuscular Hemoglobin Concent 35 g/dL (31-37) Red Cell Distribution Width 12.5 % (11.5-14.5) Platelet Count 263 x10^3/uL (140-400) Neutrophils (%) (Auto) 83 % (31-73) Lymphocytes (%) (Auto) 9 % (24-48) Monocytes (%) (Auto) 7 % (0-9) Eosinophils (%) (Auto) 0 % (0-3) Basophils (%) (Auto) 1 % (0-3) Neutrophils # (Auto) 4.2 x10^3/uL (1.8-7.7) Lymphocytes # (Auto) 0.5 x10^3/uL (1.0-4.8) Monocytes # (Auto) 0.4 x10^3/uL (0.0-1.1) Eosinophils # (Auto) 0.0 x10^3/uL (0.0-0.7) Basophils # (Auto) 0.0 x10^3/uL (0.0-0.2) Sodium Level 139 mmol/L (136-145) Potassium Level 4.2 mmol/L (3.5-5.1) Chloride Level 103 mmol/L (98-107) Carbon Dioxide Level 23 mmol/L (21-32) Anion Gap 13 (6-14) Blood Urea Nitrogen 20 mg/dL (8-26) Creatinine 1.0 mg/dL (0.7-1.3) Estimated GFR (Cockcroft-Gault) 77.3 Glucose Level 138 mg/dL (70-99) Calcium Level 8.7 mg/dL (8.5-10.1) Phosphorus Level 4.5 mg/dL (2.6-4.7) Magnesium Level 2.7 mg/dL (1.8-2.4) Assessment and Plan Assessmemt and Plan Problems Medical Problems: (1) Coronavirus infection Status: Acute (2) Respiratory failure with hypoxia Status: Acute Acute hypoxic respiratory distress due to COVID infection Lymphopenia Elevated D Dimer Plan COVID-19 protocol Consult ID Pulmonology consult Initiated Remdesivir IV Dexamethasone O2 supplementation to titrate > 92% continue IV empiric Abx Lovenox fot DVT prophylaxis Regular Diet MPOA: Multiple vitamin with minerals Beta agonist Prognosis guarded Comment Review of Relevant I have reviewed the following items marvin (where applicable) has been applied. Medications: Current Medications Medications (Trade) Dose Ordered Sig/Jonn Route PRN Reason Start Time Stop Time Status Last Admin Dose Admin Azithromycin 500 mg/Sodium Chloride 250 ml @ 250 mls/hr Q24H IV 02/09/20 13:00 02/10/20 10:18 DC 02/09/20 13:33 Ascorbic Acid (Vitamin C) 3,000 mg TID PO 02/09/20 14:00 02/10/20 09:35 Thiamine HCl 100 mg/Dextrose 51 ml @ 102 mls/hr Q8HRS IV 02/09/20 14:00 02/10/20 06:32 Dexamethasone Sodium Phosphate (Decadron) 4 mg Q12HR IVP 02/09/20 21:00 02/10/20 09:35 Enoxaparin Sodium (Lovenox 40mg Syringe) 40 mg BID SQ 02/09/20 21:00 02/10/20 09:35 Albuterol/ Ipratropium (Combivent Respimat 20-100 Mcg) 1 puff RTQID INH 02/09/20 13:00 02/10/20 09:34 Remdesivir 200 mg/ Sodium Chloride 210 ml @ 210 mls/hr 1X ONCE IV 02/09/20 18:00 02/09/20 18:59 DC 02/09/20 18:48 Justifications for Admission Other Justification hypoxic respiratory distress due to COVID infection OANH MERAZ III DO Feb 10, 2020 11:37
[2020-02-10] MEDS: cefTRIAXone IV Push 1 GM VIAL. IVP SCH (12:15)
[2020-02-10 15:00] VITALS: BP 130/83
--- NOTE | 2020-02-10 17:35 | NUR ---
SW following for discharge planning. Spoke with RN and reviewed chart. Pt from home. Pt COVID positive. Pt on IV Rocephin, 4l 02. No home 02. Pt started on Remdesivir, day 1. SW following.
[2020-02-10] MEDS: REMDESIVIR 100mg in NORMAL SALINE 250ML X 4 DAYS IV SCH (17:37)
[2020-02-10 19:20] VITALS: BP 118/73
[2020-02-10] MEDS: LACTOBACILLUS RHAMNOSUS GG 1 CAPSULE. PO SCH (22:19)
[2020-02-10 23:39] VITALS: BP 125/83
[2020-02-11 03:10] VITALS: BP 135/82
[2020-02-11] MEDS: THIAMINE INJ 100 MG in IV DEXTROSE 5% 50 ML IV SCH ×3 (05:49→21:18)
[2020-02-11] MEDS: LACTOBACILLUS RHAMNOSUS GG 1 CAPSULE. PO SCH ×2 (08:54→21:15)
[2020-02-11] MEDS: IPRATROPIUM/ALBUTEROL 20/100mcg/INH INHALER. INH SCH ×4 (08:54→21:15)
[2020-02-11] MEDS: ASCORBIC ACID 1,000 MG TABLET PO SCH ×3 (08:54→21:18)
[2020-02-11] MEDS: DEXAMETHASONE SOD PHOS 4 MG/ML VIAL IVP SCH ×2 (08:54→21:15)
--- NOTE | 2020-02-11 08:54 | PDOC ---
Infectious Disease Note Subjective: Subjective pt feels better Less cough and shortness of breath Denies fever, nausea, vomiting, diarrhea, abdominal pain, rash Otherwise as above Vital Signs: Vital Signs Vital Signs Date Time Temp Pulse Resp B/P (MAP) Pulse Ox O2 Delivery O2 Flow Rate FiO2 02/11/20 03:10 98.2 58 22 135/82 (99) 97 Nasal Cannula 3.0 98.2 Physical Exam: PHYSICAL EXAM GENERAL: Alert, oriented x 3 male lying in bed comfortably, in no acute distress, talking to his on phone. HEENT: Normocephalic, atraumatic, anicteric. NECK: Supple, no JVD. LUNGS: Decreased breath sound at the bases. No wheezing. HEART: S1, S2. No gallops or murmurs. ABDOMEN: Soft, nontender, nondistended, no rebound or guarding. EXTREMITIES: No edema, no cyanosis. DERMATOLOGIC: Warm, dry. No generalized rash. NEUROLOGIC: Alert and oriented x 3, grossly nonfocal. PSYCHIATRIC: Cooperative, appropriate mood and affect. Medications: Inpatient Meds: Current Medications Medications (Trade) Dose Ordered Sig/Jonn Start Time Stop Time Status Last Admin Dose Admin Acetaminophen (Tylenol) 1,000 mg 1X ONCE 02/09/20 11:00 02/09/20 11:01 DC 02/09/20 11:15 1,000 MG Albuterol/ Ipratropium (Combivent Respimat 20-100 Mcg) 1 puff RTQID 02/09/20 13:00 02/10/20 22:37 1 PUFF Ascorbic Acid (Vitamin C) 3,000 mg TID 02/09/20 14:00 02/10/20 22:21 3,000 MG Azithromycin 500 mg/Sodium Chloride 250 ml @ 250 mls/hr Q24H 02/09/20 13:00 02/10/20 10:18 DC 02/09/20 13:33 250 MLS/HR Ceftriaxone Sodium (Rocephin) 1 gm Q24H 02/09/20 12:30 02/10/20 12:15 1 GM Dexamethasone Sodium Phosphate (Decadron) 4 mg Q12HR 02/09/20 21:00 02/10/20 22:19 4 MG Dextrose (Dextrose 50%-Water Syringe) 12.5 gm PRN Q15MIN PRN 02/09/20 12:30 Docusate Sodium (Colace) 100 mg PRN DAILY PRN 02/09/20 12:30 Enoxaparin Sodium (Lovenox 40mg Syringe) 40 mg BID 02/09/20 21:00 02/10/20 22:21 40 MG Lactobacillus Rhamnosus (Culturelle) 1 cap BID 02/10/20 21:00 02/10/20 22:19 1 CAP Morphine Sulfate (Morphine Sulfate) 2 mg PRN Q2HR PRN 02/09/20 04:00 02/10/20 04:00 DC Ondansetron HCl (Zofran) 4 mg PRN Q6HRS PRN 02/09/20 12:30 Remdesivir 100 mg/ Sodium Chloride 230 ml @ 460 mls/hr Q24H 02/10/20 18:00 02/13/20 18:29 02/10/20 17:37 460 MLS/HR Remdesivir 200 mg/ Sodium Chloride 210 ml @ 210 mls/hr 1X ONCE 02/09/20 18:00 02/09/20 18:59 DC 02/09/20 18:48 210 MLS/HR Sennosides (Senna) 17.2 mg PRN BID PRN 02/09/20 12:30 Thiamine HCl 100 mg/Dextrose 51 ml @ 102 mls/hr Q8HRS 02/09/20 14:00 02/11/20 05:49 102 MLS/HR Objective: Assessment: COVID-19 infection Pneumonia likely viral Lymphopenia Acute hypoxic respiratory failure Abnormal LFTs History of diverticulitis Plan: Plan of Care Continue supportive care Continue remdesivir Continue IV ceftriaxone DC azithromycin as patient has completed treatment as an outpatient Steroids Follow-up labs and cultures D/W SHADE AGUIRRE MD Feb 11, 2020 08:54
[2020-02-11] MEDS: ENOXAPARIN 40 MG/0.4 ML SYRINGE. SQ SCH ×2 (08:55→21:17)
[2020-02-11 08:59] VITALS: BP 108/77
--- NOTE | 2020-02-11 09:45 | PDOC ---
PULMONARY PROGRESS NOTES DATE: 02/11/20 TIME: 09:44 Subjective Patient feels better sob better, on 02 3lpm Vitals Vital Signs Date Time Temp Pulse Resp B/P (MAP) Pulse Ox O2 Delivery O2 Flow Rate FiO2 02/11/20 08:59 97.8 75 22 108/77 (87) 98 Nasal Cannula 4.0 97.8 Comments Patient seen doing the COVID- pandemic on visual inspection no respiratory distress no increasing edema no skin rashes awake alert following, ROS: No Nausea, No Chest Pain, No Abdominal Pain, No Increase Cough Labs Laboratory Tests Test 02/10/20 04:00 White Blood Count 5.0 x10^3/uL (4.0-11.0) Red Blood Count 4.19 x10^6/uL (4.30-5.70) Hemoglobin 13.0 g/dL (13.0-17.5) Hematocrit 37.1 % (39.0-53.0) Mean Corpuscular Volume 89 fL (79-100) Mean Corpuscular Hemoglobin 31 pg (25-35) Mean Corpuscular Hemoglobin Concent 35 g/dL (31-37) Red Cell Distribution Width 12.5 % (11.5-14.5) Platelet Count 263 x10^3/uL (140-400) Neutrophils (%) (Auto) 83 % (31-73) Lymphocytes (%) (Auto) 9 % (24-48) Monocytes (%) (Auto) 7 % (0-9) Eosinophils (%) (Auto) 0 % (0-3) Basophils (%) (Auto) 1 % (0-3) Neutrophils # (Auto) 4.2 x10^3/uL (1.8-7.7) Lymphocytes # (Auto) 0.5 x10^3/uL (1.0-4.8) Monocytes # (Auto) 0.4 x10^3/uL (0.0-1.1) Eosinophils # (Auto) 0.0 x10^3/uL (0.0-0.7) Basophils # (Auto) 0.0 x10^3/uL (0.0-0.2) Sodium Level 139 mmol/L (136-145) Potassium Level 4.2 mmol/L (3.5-5.1) Chloride Level 103 mmol/L (98-107) Carbon Dioxide Level 23 mmol/L (21-32) Anion Gap 13 (6-14) Blood Urea Nitrogen 20 mg/dL (8-26) Creatinine 1.0 mg/dL (0.7-1.3) Estimated GFR (Cockcroft-Gault) 77.3 Glucose Level 138 mg/dL (70-99) Calcium Level 8.7 mg/dL (8.5-10.1) Phosphorus Level 4.5 mg/dL (2.6-4.7) Magnesium Level 2.7 mg/dL (1.8-2.4) Medications Active Scripts Medications Dose Route/Sig Max Daily Dose Days Date Category Loratadine 10 Mg Tablet 1 Tab PO DAILY 06/02/14 Reported Flonase Allergy Relief (Fluticasone Propionate) 9.9 Ml [place].susp 9.9 Ml NS DAILY08 06/02/14 Reported Impression . IMPRESSION: 1. Acute hypoxemic respiratory failure. 2. Suspect COVID-19 viral pneumonia. 3. Abnormal x-ray, possible gram-positive, gram-negative bacterial pneumonia. 4. Fever related to above. Plan . Continue current support, IV antibiotics, 02 titration Dexamethasone Remdesivir Bronchodilators DVT prophylaxis discussed w RINA Thomas MD Feb 11, 2020 09:45
[2020-02-11 11:59] VITALS: BP 124/77
--- NOTE | 2020-02-11 12:03 | PDOC ---
[employer] PROGRESS NOTE Date of Service DOS: DATE: 02/11/20 TIME: 12:02 Chief Complaint Chief Complaint Acute hypoxic respiratory distress due to COVID infection Lymphopenia Elevated D Dimer History of Present Illness History of Present Illness 02/11/2020 Patient seen and examined Discussed with RN Chart reviewed 02/10/2020 Patient seen and examined on the COVID-19 unit Is Covid test is positive Discussed with RN Chart reviewed He is quite ill Vitals/I&O Vitals/I&O: Vital Signs Date Time Temp Pulse Resp B/P (MAP) Pulse Ox O2 Delivery O2 Flow Rate FiO2 02/11/20 08:59 97.8 75 22 108/77 (87) 98 Nasal Cannula 4.0 97.8 I & O 02/10/20 02/10/20 02/11/20 15:00 23:00 07:00 Intake Total 350 ml 350 ml 540 ml Balance 350 ml 350 ml 540 ml Physical Exam Physical Exam: GENERAL: Alert, oriented x 3 male lying in bed comfortably, in no acute distress, talking to his on phone. HEENT: Normocephalic, atraumatic, anicteric. NECK: Supple, no JVD. LUNGS: Decreased breath sound at the bases. No wheezing. HEART: S1, S2. No gallops or murmurs. ABDOMEN: Soft, nontender, nondistended, no rebound or guarding. EXTREMITIES: No edema, no cyanosis. DERMATOLOGIC: Warm, dry. No generalized rash. NEUROLOGIC: Alert and oriented x 3, grossly nonfocal. PSYCHIATRIC: Cooperative, appropriate mood and affect. General: Alert, mild distress Heart: Normal S1, Normal S2, Other (Tachycardic) Abdomen: Normal bowel sounds, No hepatosplenomegaly Extremities: No cyanosis, No edema Skin: No rashes, No breakdown Assessment and Plan Assessmemt and Plan Problems Medical Problems: (1) Coronavirus infection Status: Acute (2) Respiratory failure with hypoxia Status: Acute Acute hypoxic respiratory distress due to COVID infection Lymphopenia Elevated D Dimer Plan COVID-19 protocol Consult ID Pulmonology consult Initiated Remdesivir IV Dexamethasone O2 supplementation to titrate > 92% continue IV empiric Abx Lovenox fot DVT prophylaxis Regular Diet MPOA: Multiple vitamin with minerals Beta agonist Prognosis guarded Comment Review of Relevant I have reviewed the following items marvin (where applicable) has been applied. Medications: Current Medications Medications (Trade) Dose Ordered Sig/Jonn Route PRN Reason Start Time Stop Time Status Last Admin Dose Admin Remdesivir 100 mg/ Sodium Chloride 230 ml @ 460 mls/hr Q24H IV 02/10/20 18:00 02/13/20 18:29 02/10/20 17:37 Lactobacillus Rhamnosus (Culturelle) 1 cap BID PO 02/10/20 21:00 02/11/20 08:54 Justifications for Admission Other Justification hypoxic respiratory distress due to COVID infection OANH MERAZ III DO Feb 11, 2020 12:03
[2020-02-11] MEDS: cefTRIAXone IV Push 1 GM VIAL. IVP SCH (14:21)
[2020-02-11 15:59] VITALS: BP 119/74
[2020-02-11] MEDS: REMDESIVIR 100mg in NORMAL SALINE 250ML X 4 DAYS IV SCH (17:46)
[2020-02-11 19:50] VITALS: BP 140/81
[2020-02-11 23:43] VITALS: BP 135/80
[2020-02-12 03:00] VITALS: BP 124/75
[2020-02-12 04:50] LABS: CALCIUM 8.4 mg/dL (8.5-10.1); CREATININE 1.2 mg/dL (0.7-1.3); GFR 62.6; POTASSIUM 4.7 mmol/L (3.5-5.1)
[2020-02-12 06:39] LABS: BASO % 0 % (0-3); EOS % 0 % (0-3); HEMATOCRIT 38.8 % (39.0-53.0); HEMOGLOBIN 13.3 g/dL (13.0-17.5); LYMPH # 0.8 x10^3/uL (1.0-4.8); LYMPH % 9 % (24-48); MEAN CORPUSCULAR HEMOGLOBIN 31 pg (25-35); MEAN CORPUSCULAR HGB CONC 34 g/dL (31-37); MEAN CORPUSCULAR VOLUME 91 fL (79-100); MONO # 0.6 x10^3/uL (0.0-1.1); MONO % 7 % (0-9); NEUT # 7.5 x10^3/uL (1.8-7.7); NEUT % 84 % (31-73); PLATELET COUNT 333 x10^3/uL (140-400); RED BLOOD COUNT 4.29 x10^6/uL (4.30-5.70); RED CELL DISTRIBUTION WIDTH 12.7 % (11.5-14.5); WHITE BLOOD COUNT 8.9 x10^3/uL (4.0-11.0)
[2020-02-12 07:00] VITALS: BP 131/78
--- NOTE | 2020-02-12 08:59 | PDOC ---
Infectious Disease Note Subjective: Subjective pt feels better O2 at 2l/nc Denies fever, nausea, vomiting, diarrhea, abdominal pain, rash Otherwise as above Vital Signs: Vital Signs Vital Signs Date Time Temp Pulse Resp B/P (MAP) Pulse Ox O2 Delivery O2 Flow Rate FiO2 02/12/20 03:00 96.5 63 18 124/75 (91) 98 Nasal Cannula 2.0 96.5 Physical Exam: PHYSICAL EXAM GENERAL: Alert, oriented x 3 male lying in bed comfortably, in no acute distress, talking to his on phone. HEENT: Normocephalic, atraumatic, anicteric. NECK: Supple, no JVD. LUNGS: Decreased breath sound at the bases. No wheezing. HEART: S1, S2. No gallops or murmurs. ABDOMEN: Soft, nontender, nondistended, no rebound or guarding. EXTREMITIES: No edema, no cyanosis. DERMATOLOGIC: Warm, dry. No generalized rash. NEUROLOGIC: Alert and oriented x 3, grossly nonfocal. PSYCHIATRIC: Cooperative, appropriate mood and affect. Medications: Inpatient Meds: Current Medications Medications (Trade) Dose Ordered Sig/Jonn Start Time Stop Time Status Last Admin Dose Admin Acetaminophen (Tylenol) 1,000 mg 1X ONCE 02/09/20 11:00 02/09/20 11:01 DC 02/09/20 11:15 1,000 MG Albuterol/ Ipratropium (Combivent Respimat 20-100 Mcg) 1 puff RTQID 02/09/20 13:00 02/11/20 21:15 1 PUFF Ascorbic Acid (Vitamin C) 3,000 mg TID 02/09/20 14:00 02/11/20 21:18 3,000 MG Azithromycin 500 mg/Sodium Chloride 250 ml @ 250 mls/hr Q24H 02/09/20 13:00 02/10/20 10:18 DC 02/09/20 13:33 250 MLS/HR Ceftriaxone Sodium (Rocephin) 1 gm Q24H 02/09/20 12:30 02/11/20 14:21 1 GM Dexamethasone Sodium Phosphate (Decadron) 4 mg Q12HR 02/09/20 21:00 02/11/20 21:15 4 MG Dextrose (Dextrose 50%-Water Syringe) 12.5 gm PRN Q15MIN PRN 02/09/20 12:30 Docusate Sodium (Colace) 100 mg PRN DAILY PRN 02/09/20 12:30 Enoxaparin Sodium (Lovenox 40mg Syringe) 40 mg BID 02/09/20 21:00 02/11/20 21:17 40 MG Lactobacillus Rhamnosus (Culturelle) 1 cap BID 02/10/20 21:00 02/11/20 21:15 1 CAP Morphine Sulfate (Morphine Sulfate) 2 mg PRN Q2HR PRN 02/09/20 04:00 02/10/20 04:00 DC Ondansetron HCl (Zofran) 4 mg PRN Q6HRS PRN 02/09/20 12:30 Remdesivir 100 mg/ Sodium Chloride 230 ml @ 460 mls/hr Q24H 02/10/20 18:00 02/13/20 18:29 02/11/20 17:46 460 MLS/HR Remdesivir 200 mg/ Sodium Chloride 210 ml @ 210 mls/hr 1X ONCE 02/09/20 18:00 02/09/20 18:59 DC 02/09/20 18:48 210 MLS/HR Sennosides (Senna) 17.2 mg PRN BID PRN 02/09/20 12:30 Thiamine Mononitrate (Vitamin B-1) 100 mg TID 02/12/20 09:00 Thiamine HCl 100 mg/Dextrose 51 ml @ 102 mls/hr Q8HRS 02/09/20 14:00 02/12/20 01:05 DC 02/11/20 21:18 102 MLS/HR Labs: Lab Laboratory Tests Test 02/12/20 04:00 02/12/20 05:00 Sodium Level 140 mmol/L (136-145) Potassium Level 4.7 mmol/L (3.5-5.1) Chloride Level 105 mmol/L (98-107) Carbon Dioxide Level 26 mmol/L (21-32) Anion Gap 9 (6-14) Blood Urea Nitrogen 25 mg/dL (8-26) Creatinine 1.2 mg/dL (0.7-1.3) Estimated GFR (Cockcroft-Gault) 62.6 Glucose Level 140 mg/dL (70-99) Calcium Level 8.4 mg/dL (8.5-10.1) White Blood Count 8.9 x10^3/uL (4.0-11.0) Red Blood Count 4.29 x10^6/uL (4.30-5.70) Hemoglobin 13.3 g/dL (13.0-17.5) Hematocrit 38.8 % (39.0-53.0) Mean Corpuscular Volume 91 fL (79-100) Mean Corpuscular Hemoglobin 31 pg (25-35) Mean Corpuscular Hemoglobin Concent 34 g/dL (31-37) Red Cell Distribution Width 12.7 % (11.5-14.5) Platelet Count 333 x10^3/uL (140-400) Neutrophils (%) (Auto) 84 % (31-73) Lymphocytes (%) (Auto) 9 % (24-48) Monocytes (%) (Auto) 7 % (0-9) Eosinophils (%) (Auto) 0 % (0-3) Basophils (%) (Auto) 0 % (0-3) Neutrophils # (Auto) 7.5 x10^3/uL (1.8-7.7) Lymphocytes # (Auto) 0.8 x10^3/uL (1.0-4.8) Monocytes # (Auto) 0.6 x10^3/uL (0.0-1.1) Eosinophils # (Auto) 0.0 x10^3/uL (0.0-0.7) Basophils # (Auto) 0.0 x10^3/uL (0.0-0.2) Objective: Assessment: COVID-19 infection Pneumonia likely viral Lymphopenia Acute hypoxic respiratory failure Abnormal LFTs History of diverticulitis Plan: Plan of Care Continue supportive care Continue remdesivir Continue IV ceftriaxone Steroids Follow-up labs and cultures D/W SHADE AGUIRRE MD Feb 12, 2020 08:59
[2020-02-12] MEDS: ENOXAPARIN 40 MG/0.4 ML SYRINGE. SQ SCH (09:10)
[2020-02-12] MEDS: IPRATROPIUM/ALBUTEROL 20/100mcg/INH INHALER. INH SCH ×3 (09:10→17:10)
[2020-02-12] MEDS: ASCORBIC ACID 1,000 MG TABLET PO SCH ×2 (09:10→14:00)
[2020-02-12] MEDS: DEXAMETHASONE SOD PHOS 4 MG/ML VIAL IVP SCH (09:11)
[2020-02-12] MEDS: LACTOBACILLUS RHAMNOSUS GG 1 CAPSULE. PO SCH (09:11)
[2020-02-12] MEDS: THIAMINE 100 MG TABLET. PO SCH ×2 (09:11→14:00)
--- NOTE | 2020-02-12 09:41 | PDOC ---
PULMONARY PROGRESS NOTES DATE: 02/12/20 TIME: 09:40 Subjective Patient feels better sob better, has occ cough, on 02 2 lpm Vitals Vital Signs Date Time Temp Pulse Resp B/P (MAP) Pulse Ox O2 Delivery O2 Flow Rate FiO2 02/12/20 07:00 97.0 75 18 131/78 (95) 99 Nasal Cannula 2.0 97.0 Comments Patient seen doing the COVID- pandemic on visual inspection no respiratory distress no increasing edema no skin rashes awake alert following, ROS: No Nausea, No Chest Pain, No Abdominal Pain, No Increase Cough Labs Laboratory Tests Test 02/12/20 04:00 02/12/20 05:00 Sodium Level 140 mmol/L (136-145) Potassium Level 4.7 mmol/L (3.5-5.1) Chloride Level 105 mmol/L (98-107) Carbon Dioxide Level 26 mmol/L (21-32) Anion Gap 9 (6-14) Blood Urea Nitrogen 25 mg/dL (8-26) Creatinine 1.2 mg/dL (0.7-1.3) Estimated GFR (Cockcroft-Gault) 62.6 Glucose Level 140 mg/dL (70-99) Calcium Level 8.4 mg/dL (8.5-10.1) White Blood Count 8.9 x10^3/uL (4.0-11.0) Red Blood Count 4.29 x10^6/uL (4.30-5.70) Hemoglobin 13.3 g/dL (13.0-17.5) Hematocrit 38.8 % (39.0-53.0) Mean Corpuscular Volume 91 fL (79-100) Mean Corpuscular Hemoglobin 31 pg (25-35) Mean Corpuscular Hemoglobin Concent 34 g/dL (31-37) Red Cell Distribution Width 12.7 % (11.5-14.5) Platelet Count 333 x10^3/uL (140-400) Neutrophils (%) (Auto) 84 % (31-73) Lymphocytes (%) (Auto) 9 % (24-48) Monocytes (%) (Auto) 7 % (0-9) Eosinophils (%) (Auto) 0 % (0-3) Basophils (%) (Auto) 0 % (0-3) Neutrophils # (Auto) 7.5 x10^3/uL (1.8-7.7) Lymphocytes # (Auto) 0.8 x10^3/uL (1.0-4.8) Monocytes # (Auto) 0.6 x10^3/uL (0.0-1.1) Eosinophils # (Auto) 0.0 x10^3/uL (0.0-0.7) Basophils # (Auto) 0.0 x10^3/uL (0.0-0.2) Laboratory Tests Test 02/12/20 04:00 02/12/20 05:00 Sodium Level 140 mmol/L (136-145) Potassium Level 4.7 mmol/L (3.5-5.1) Chloride Level 105 mmol/L (98-107) Carbon Dioxide Level 26 mmol/L (21-32) Anion Gap 9 (6-14) Blood Urea Nitrogen 25 mg/dL (8-26) Creatinine 1.2 mg/dL (0.7-1.3) Estimated GFR (Cockcroft-Gault) 62.6 Glucose Level 140 mg/dL (70-99) Calcium Level 8.4 mg/dL (8.5-10.1) White Blood Count 8.9 x10^3/uL (4.0-11.0) Red Blood Count 4.29 x10^6/uL (4.30-5.70) Hemoglobin 13.3 g/dL (13.0-17.5) Hematocrit 38.8 % (39.0-53.0) Mean Corpuscular Volume 91 fL (79-100) Mean Corpuscular Hemoglobin 31 pg (25-35) Mean Corpuscular Hemoglobin Concent 34 g/dL (31-37) Red Cell Distribution Width 12.7 % (11.5-14.5) Platelet Count 333 x10^3/uL (140-400) Neutrophils (%) (Auto) 84 % (31-73) Lymphocytes (%) (Auto) 9 % (24-48) Monocytes (%) (Auto) 7 % (0-9) Eosinophils (%) (Auto) 0 % (0-3) Basophils (%) (Auto) 0 % (0-3) Neutrophils # (Auto) 7.5 x10^3/uL (1.8-7.7) Lymphocytes # (Auto) 0.8 x10^3/uL (1.0-4.8) Monocytes # (Auto) 0.6 x10^3/uL (0.0-1.1) Eosinophils # (Auto) 0.0 x10^3/uL (0.0-0.7) Basophils # (Auto) 0.0 x10^3/uL (0.0-0.2) Medications Active Scripts Medications Dose Route/Sig Max Daily Dose Days Date Category Loratadine 10 Mg Tablet 1 Tab PO DAILY 06/02/14 Reported Flonase Allergy Relief (Fluticasone Propionate) 9.9 Ml [place].susp 9.9 Ml [place] DAILY08 06/02/14 Reported Impression . IMPRESSION: 1. Acute hypoxemic respiratory failure. 2. Suspect COVID-19 viral pneumonia. 3. Abnormal x-ray, possible gram-positive, gram-negative bacterial pneumonia. 4. Fever related to above. Plan . Continue current support, cont antibiotics per id, 02 titration Dexamethasone Remdesivir Bronchodilators DVT prophylaxis discussed w RINA Thomas MD Feb 12, 2020 09:41
[2020-02-12 11:00] VITALS: BP 131/75
[2020-02-12] MEDS: cefTRIAXone IV Push 1 GM VIAL. IVP SCH (11:45)
--- NOTE | 2020-02-12 12:13 | PDOC ---
[employer] PROGRESS NOTE Date of Service DOS: DATE: 02/12/20 TIME: 12:12 Chief Complaint Chief Complaint Acute hypoxic respiratory distress due to COVID infection Lymphopenia Elevated D Dimer History of Present Illness History of Present Illness 02/11/2022 Patient seen and examined on the COVID-19 floor He remains quite ill very weak short of breath can barely talk Chart reviewed Discussed with RN 02/11/2020 Patient seen and examined Discussed with RN Chart reviewed 02/10/2020 Patient seen and examined on the COVID-19 unit Is Covid test is positive Discussed with RN Chart reviewed He is quite ill Vitals/I&O Vitals/I&O: Vital Signs Date Time Temp Pulse Resp B/P (MAP) Pulse Ox O2 Delivery O2 Flow Rate FiO2 02/12/20 08:00 Nasal Cannula 2.0 02/12/20 07:00 97.0 75 18 131/78 (95) 99 97.0 I & O 02/11/20 02/11/20 02/12/20 15:00 23:00 07:00 Intake Total 100 ml 800 ml Balance 100 ml 800 ml Physical Exam Physical Exam: GENERAL: Alert, oriented x 3 male lying in bed comfortably, in no acute distress, talking to his on phone. HEENT: Normocephalic, atraumatic, anicteric. NECK: Supple, no JVD. LUNGS: Decreased breath sound at the bases. No wheezing. HEART: S1, S2. No gallops or murmurs. ABDOMEN: Soft, nontender, nondistended, no rebound or guarding. EXTREMITIES: No edema, no cyanosis. DERMATOLOGIC: Warm, dry. No generalized rash. NEUROLOGIC: Alert and oriented x 3, grossly nonfocal. PSYCHIATRIC: Cooperative, appropriate mood and affect. General: Alert, moderate distress Heart: Normal S1, Normal S2, Other (Tachycardic) Abdomen: Normal bowel sounds, No hepatosplenomegaly Extremities: No cyanosis, No edema Skin: No rashes, No breakdown Labs Labs: Laboratory Tests Test 02/12/20 04:00 02/12/20 05:00 Sodium Level 140 mmol/L (136-145) Potassium Level 4.7 mmol/L (3.5-5.1) Chloride Level 105 mmol/L (98-107) Carbon Dioxide Level 26 mmol/L (21-32) Anion Gap 9 (6-14) Blood Urea Nitrogen 25 mg/dL (8-26) Creatinine 1.2 mg/dL (0.7-1.3) Estimated GFR (Cockcroft-Gault) 62.6 Glucose Level 140 mg/dL (70-99) Calcium Level 8.4 mg/dL (8.5-10.1) White Blood Count 8.9 x10^3/uL (4.0-11.0) Red Blood Count 4.29 x10^6/uL (4.30-5.70) Hemoglobin 13.3 g/dL (13.0-17.5) Hematocrit 38.8 % (39.0-53.0) Mean Corpuscular Volume 91 fL (79-100) Mean Corpuscular Hemoglobin 31 pg (25-35) Mean Corpuscular Hemoglobin Concent 34 g/dL (31-37) Red Cell Distribution Width 12.7 % (11.5-14.5) Platelet Count 333 x10^3/uL (140-400) Neutrophils (%) (Auto) 84 % (31-73) Lymphocytes (%) (Auto) 9 % (24-48) Monocytes (%) (Auto) 7 % (0-9) Eosinophils (%) (Auto) 0 % (0-3) Basophils (%) (Auto) 0 % (0-3) Neutrophils # (Auto) 7.5 x10^3/uL (1.8-7.7) Lymphocytes # (Auto) 0.8 x10^3/uL (1.0-4.8) Monocytes # (Auto) 0.6 x10^3/uL (0.0-1.1) Eosinophils # (Auto) 0.0 x10^3/uL (0.0-0.7) Basophils # (Auto) 0.0 x10^3/uL (0.0-0.2) Assessment and Plan Assessmemt and Plan Problems Medical Problems: (1) Coronavirus infection Status: Acute (2) Respiratory failure with hypoxia Status: Acute Acute hypoxic respiratory distress due to COVID infection Lymphopenia Elevated D Dimer Plan COVID-19 protocol Consult ID Pulmonary following Initiated Remdesivir IV Dexamethasone O2 supplementation to titrate > 92% continue IV empiric Abx Lovenox fot DVT prophylaxis Regular Diet MPOA: Multiple vitamin with minerals Beta agonist Prognosis guarded Comment Review of Relevant I have reviewed the following items marvin (where applicable) has been applied. Medications: Current Medications Medications (Trade) Dose Ordered Sig/Jonn Route PRN Reason Start Time Stop Time Status Last Admin Dose Admin Thiamine Mononitrate (Vitamin B-1) 100 mg TID PO 02/12/20 09:00 02/12/20 09:11 Justifications for Admission Other Justification hypoxic respiratory distress due to COVID infection OANH MERAZ III DO Feb 12, 2020 12:13
[2020-02-12 12:26] LABS: ALBUMIN 2.8 g/dL (3.4-5.0); DIRECT BILIRUBIN 0.2 mg/dL (0.0-0.2); TOTAL BILIRUBIN 0.5 mg/dL (0.2-1.0); TOTAL PROTEIN 6.7 g/dL (6.4-8.2)
[2020-02-12 15:59] VITALS: BP 131/79
[2020-02-12] MEDS: REMDESIVIR 100mg in NORMAL SALINE 250ML X 4 DAYS IV SCH (17:29)
[2020-02-12 23:56] VITALS: BP 128/79
[2020-02-13] MEDS: ASCORBIC ACID 1,000 MG TABLET PO SCH ×3 (00:34→13:09)
[2020-02-13] MEDS: ENOXAPARIN 40 MG/0.4 ML SYRINGE. SQ SCH ×3 (00:34→09:22)
[2020-02-13] MEDS: LACTOBACILLUS RHAMNOSUS GG 1 CAPSULE. PO SCH ×2 (00:35→09:22)
[2020-02-13] MEDS: IPRATROPIUM/ALBUTEROL 20/100mcg/INH INHALER. INH SCH ×3 (00:35→12:00)
[2020-02-13] MEDS: THIAMINE 100 MG TABLET. PO SCH ×3 (00:35→13:09)
[2020-02-13] MEDS: DEXAMETHASONE SOD PHOS 4 MG/ML VIAL IVP SCH ×2 (00:35→09:21)
[2020-02-13 03:46] VITALS: BP 128/79
[2020-02-13 07:00] VITALS: BP 140/75
--- NOTE | 2020-02-13 08:59 | PDOC ---
PULMONARY PROGRESS NOTES DATE: 02/13/20 TIME: 08:58 Subjective Patient feels better sob better, has occ cough, on 02 2 lpm Vitals Vital Signs Date Time Temp Pulse Resp B/P (MAP) Pulse Ox O2 Delivery O2 Flow Rate FiO2 02/13/20 03:46 97.8 54 16 128/79 (95) 97 Room Air 97.8 02/12/20 23:56 2.0 Comments Patient seen doing the COVID- pandemic on visual inspection no respiratory distress no increasing edema no skin rashes awake alert following, ROS: No Nausea, No Chest Pain, No Abdominal Pain, No Increase Cough Labs Laboratory Tests Test 02/12/20 04:00 02/12/20 05:00 02/12/20 11:42 Sodium Level 140 mmol/L (136-145) Potassium Level 4.7 mmol/L (3.5-5.1) Chloride Level 105 mmol/L (98-107) Carbon Dioxide Level 26 mmol/L (21-32) Anion Gap 9 (6-14) Blood Urea Nitrogen 25 mg/dL (8-26) Creatinine 1.2 mg/dL (0.7-1.3) Estimated GFR (Cockcroft-Gault) 62.6 Glucose Level 140 mg/dL (70-99) Calcium Level 8.4 mg/dL (8.5-10.1) White Blood Count 8.9 x10^3/uL (4.0-11.0) Red Blood Count 4.29 x10^6/uL (4.30-5.70) Hemoglobin 13.3 g/dL (13.0-17.5) Hematocrit 38.8 % (39.0-53.0) Mean Corpuscular Volume 91 fL (79-100) Mean Corpuscular Hemoglobin 31 pg (25-35) Mean Corpuscular Hemoglobin Concent 34 g/dL (31-37) Red Cell Distribution Width 12.7 % (11.5-14.5) Platelet Count 333 x10^3/uL (140-400) Neutrophils (%) (Auto) 84 % (31-73) Lymphocytes (%) (Auto) 9 % (24-48) Monocytes (%) (Auto) 7 % (0-9) Eosinophils (%) (Auto) 0 % (0-3) Basophils (%) (Auto) 0 % (0-3) Neutrophils # (Auto) 7.5 x10^3/uL (1.8-7.7) Lymphocytes # (Auto) 0.8 x10^3/uL (1.0-4.8) Monocytes # (Auto) 0.6 x10^3/uL (0.0-1.1) Eosinophils # (Auto) 0.0 x10^3/uL (0.0-0.7) Basophils # (Auto) 0.0 x10^3/uL (0.0-0.2) Total Bilirubin 0.5 mg/dL (0.2-1.0) Direct Bilirubin 0.2 mg/dL (0.0-0.2) Aspartate Amino Transf (AST/SGOT) 29 U/L (15-37) Alanine Aminotransferase (ALT/SGPT) 117 U/L (16-63) Alkaline Phosphatase 63 U/L (46-116) Total Protein 6.7 g/dL (6.4-8.2) Albumin 2.8 g/dL (3.4-5.0) Laboratory Tests Test 02/12/20 11:42 Total Bilirubin 0.5 mg/dL (0.2-1.0) Direct Bilirubin 0.2 mg/dL (0.0-0.2) Aspartate Amino Transf (AST/SGOT) 29 U/L (15-37) Alanine Aminotransferase (ALT/SGPT) 117 U/L (16-63) Alkaline Phosphatase 63 U/L (46-116) Total Protein 6.7 g/dL (6.4-8.2) Albumin 2.8 g/dL (3.4-5.0) Medications Active Scripts Medications Dose Route/Sig Max Daily Dose Days Date Category Loratadine 10 Mg Tablet 1 Tab PO DAILY 06/02/14 Reported Flonase Allergy Relief (Fluticasone Propionate) 9.9 Ml [place].susp 9.9 Ml NS DAILY08 06/02/14 Reported Impression . IMPRESSION: 1. Acute hypoxemic respiratory failure. 2. COVID-19 viral pneumonia. 3. Abnormal x-ray, possible gram-positive, gram-negative bacterial pneumonia. 4. Fever related to above. Plan . Continue current support, cont antibiotics per id, 02 titration , on 2 litres Dexamethasone Remdesivir, will finish today Bronchodilators DVT prophylaxis discussed w rn dc home after today's remdesvir will sign off RAMOS SORENSEN MD Feb 13, 2020 08:59
--- NOTE | 2020-02-13 11:39 | PDOC ---
[employer] PROGRESS NOTE Date of Service DOS: DATE: 02/13/20 TIME: 11:38 Chief Complaint Chief Complaint Acute hypoxic respiratory distress due to COVID infection Lymphopenia Elevated D Dimer History of Present Illness History of Present Illness 02/13/2020 Patient seen and examined on the [facility]-19 floor He is on day 4 of IV remdesivir Discussed with case management Discussed with RN We hope to discharge tomorrow I spoke with his on the phone 02/11/2022 Patient seen and examined on the [facility]- floor He remains quite ill very weak short of breath can barely talk Chart reviewed Discussed with RN 02/11/2020 Patient seen and examined Discussed with RN Chart reviewed 02/10/2020 Patient seen and examined on the [facility]- unit Is Covid test is positive Discussed with RN Chart reviewed He is quite ill Vitals/I&O Vitals/I&O: Vital Signs Date Time Temp Pulse Resp B/P (MAP) Pulse Ox O2 Delivery O2 Flow Rate FiO2 02/13/20 08:00 Room Air 02/13/20 07:00 97.9 69 18 140/75 (96) 94 97.9 02/12/20 23:56 2.0 I & O 02/12/20 02/12/20 02/13/20 15:00 23:00 07:00 Intake Total 120 ml 200 ml 450 ml Balance 120 ml 200 ml 450 ml Physical Exam Physical Exam: GENERAL: Alert, oriented x 3 male lying in bed comfortably, in no acute distress, talking to his on phone. HEENT: Normocephalic, atraumatic, anicteric. NECK: Supple, no JVD. LUNGS: Decreased breath sound at the bases. No wheezing. HEART: S1, S2. No gallops or murmurs. ABDOMEN: Soft, nontender, nondistended, no rebound or guarding. EXTREMITIES: No edema, no cyanosis. DERMATOLOGIC: Warm, dry. No generalized rash. NEUROLOGIC: Alert and oriented x 3, grossly nonfocal. PSYCHIATRIC: Cooperative, appropriate mood and affect. General: Alert, moderate distress Heart: Normal S1, Normal S2, Other (Tachycardic) Abdomen: Normal bowel sounds, No hepatosplenomegaly Extremities: No cyanosis, No edema Skin: No rashes, No breakdown Labs Labs: Laboratory Tests Test 02/12/20 11:42 Total Bilirubin 0.5 mg/dL (0.2-1.0) Direct Bilirubin 0.2 mg/dL (0.0-0.2) Aspartate Amino Transf (AST/SGOT) 29 U/L (15-37) Alanine Aminotransferase (ALT/SGPT) 117 U/L (16-63) Alkaline Phosphatase 63 U/L (46-116) Total Protein 6.7 g/dL (6.4-8.2) Albumin 2.8 g/dL (3.4-5.0) Assessment and Plan Assessmemt and Plan Problems Medical Problems: (1) Coronavirus infection Status: Acute (2) Respiratory failure with hypoxia Status: Acute Acute hypoxic respiratory distress due to COVID infection Lymphopenia Elevated D Dimer Plan Probable discharge tomorrow for now continue the following; COVID-19 protocol ID following Pulmonary following He will complete remdesivir day 5 tomorrow IV Dexamethasone O2 supplementation to titrate > 92% continue IV empiric Abx Lovenox fot DVT prophylaxis Regular Diet MPOA: Multiple vitamin with minerals Beta agonist Comment Review of Relevant I have reviewed the following items marvin (where applicable) has been applied. Justifications for Admission Other Justification hypoxic respiratory distress due to COVID infection OANH MERAZ III DO Feb 13, 2020 11:39
--- NOTE | 2020-02-13 11:49 | PDOC ---
Infectious Disease Note Subjective Subjective pt feels better on RA Denies fever, nausea, vomiting, diarrhea, abdominal pain, rash Otherwise as above Vital Sign Vital Signs Vital Signs Date Time Temp Pulse Resp B/P (MAP) Pulse Ox O2 Delivery O2 Flow Rate FiO2 02/13/20 08:00 Room Air 02/13/20 07:00 97.9 69 18 140/75 (96) 94 97.9 02/12/20 23:56 2.0 Physical Exam PHYSICAL EXAM GENERAL: Alert, oriented x 3 male lying in bed comfortably, in no acute distress, talking to his on phone. HEENT: Normocephalic, atraumatic, anicteric. NECK: Supple, no JVD. LUNGS: Decreased breath sound at the bases. No wheezing. HEART: S1, S2. No gallops or murmurs. ABDOMEN: Soft, nontender, nondistended, no rebound or guarding. EXTREMITIES: No edema, no cyanosis. DERMATOLOGIC: Warm, dry. No generalized rash. NEUROLOGIC: Alert and oriented x 3, grossly nonfocal. PSYCHIATRIC: Cooperative, appropriate mood and affect. Objective Assessment COVID-19 infection Pneumonia likely viral Lymphopenia Acute hypoxic respiratory failure Abnormal LFTs History of diverticulitis Plan Plan of Care Continue supportive care Steroids Follow-up labs and cultures D/W RN ok to d/c home return if worse RADHA DONALD MD Feb 13, 2020 11:49
[2020-02-13 12:34] LABS: BASO % 0 % (0-3); EOS % 0 % (0-3); HEMATOCRIT 40.3 % (39.0-53.0); HEMOGLOBIN 13.7 g/dL (13.0-17.5); LYMPH # 0.8 x10^3/uL (1.0-4.8); LYMPH % 9 % (24-48); MEAN CORPUSCULAR HEMOGLOBIN 30 pg (25-35); MEAN CORPUSCULAR HGB CONC 34 g/dL (31-37); MEAN CORPUSCULAR VOLUME 90 fL (79-100); MONO # 0.8 x10^3/uL (0.0-1.1); MONO % 9 % (0-9); NEUT % 83 % (31-73); PLATELET COUNT 417 x10^3/uL (140-400); RED CELL DISTRIBUTION WIDTH 12.8 % (11.5-14.5); WHITE BLOOD COUNT 9.7 x10^3/uL (4.0-11.0)
--- NOTE | 2020-02-13 12:45 | DS ---
DATE OF DISCHARGE: 02/13/2020 ADMISSION DIAGNOSIS: COVID-19. DISCHARGE DIAGNOSIS: Resolving COVID-19. HOSPITAL COURSE: The patient is a pleasant middle-aged male, who presented with COVID-19. We admitted the patient and consulted Infectious Disease and Pulmonary, gave him COVID-19 protocol including remdesivir. Over the past few days, he returned to his baseline. We are discharging home today. DISPOSITION: Home. ACTIVITY: As tolerated. DIET: Low sodium. MEDICATIONS: Please see the MRAD. TOTAL TIME: 34 minutes. OANH MERAZ DO DR: DURAN/isi JOB#: [id number] / [id number]
[2020-02-13 12:53] LABS: CALCIUM 8.8 mg/dL (8.5-10.1); CREATININE 0.9 mg/dL (0.7-1.3); GFR 87.3; POTASSIUM 3.9 mmol/L (3.5-5.1)
[2020-02-13 15:00] VITALS: BP 128/67
--- NOTE | 2020-02-13 16:21 | NUR ---
Discharge Note: JOHNIE BLACKWELL [address] [place] [address] Discharge instructions and discharge home medications reviewed with Patient and a copy given. All questions have been answered and understanding verbalized. The following instructions and handouts were given: diet, activity, medication list and follow up instructions provided to patient. Discontinued lines and drains: Peripheral IV discontinued and catheter intact. Patient discharged to Home or Self Care with Family Member via Wheelchair
--- NOTE | 2020-02-13 17:03 | NUR ---
SW following for discharge planning. Spoke with RN and reviewed chart. Pt from home. Pt to discharged home today, self-care. Pt on room air and oral medications. No further SW needs at this time.
== END 2020-02-13 15:52 | disposition home or self-care (01) | DRG 177 ==
LOC: ER 09:24 → ED HOLD 11:45 → 6 SOUTH 19:24
PROVIDERS: ADMIT Internal Medicine; ATTEND Internal Medicine
PROC: XW033E5 Introduction of Remdesivir Anti-infective into Peripheral Vein, Percutaneous Approach, New Technology Group 5 (ICD-10-PCS; principal; 2020-02-09)
DX: U07.1 COVID-19 (principal); J96.01 Acute respiratory failure with hypoxia; J12.89 Other viral pneumonia; D72.810 Lymphocytopenia; R94.5 Abnormal results of liver function studies
CPT/HCPCS: 36415; 71045; 80048; 80053; 80076; 82550; 83615; 83735; 83880; 84100; 84145; 84484; 85025; 85379; 86140; 93005; 96365; 96367; 96375; J0456; J0696; J1100; J1650; J3411; J7050; J7060; 97530-GP; 99285-25; G0378; J7030